=== PATIENT | male | born 1950 | race Caucasian/White ===

== ENCOUNTER 2017-04-30 11:35 | Outpatient (CLI) | payer MEDICARE ==
--- NOTE | 2017-04-30 19:54 | PET ---
PET CT 04/30/17 INDICATION: History of rectal cancer. RADIOPHARMACEUTICAL: 10.3 millicuries of F18 FDG IV. TECHNIQUE: PET CT images were obtained from the skull base through the mid thighs. CT images were obtained for attenuation correction purposes only. No comparisons are available. FINDINGS: The biodistribution for the examination appears acceptable. HEAD AND NECK: There is some mild hypermetabolic activity involving the right aspect of the thyroid gland with a pe ak SUV value of 4.85, mean value of 3.84. No definite discrete thyroid lesion is identified by CT. N o hypermetabolic lymphadenopathy is evident. there is an air fluid level within the right maxillary sinus which is suspicious for changes of underlying sinusitis. CHEST: There is a hypermetabolic spiculated nodule within the right middle lobe measuring 1.8 cm with a pe ak SUV value of 2.88 and a mean value of 2.14. No additional hypermetabolic pulmonary nodule or pleu ral effusion is evident. ABDOMEN AND PELVIS: There are numerous hypermetabolic lesions seen within the liver. One of the largest is seen within s egment VII of the right hepatic lobe measuring 2.4 cm with a peak SUV uptake of 14.57 and a mean jason ue of 11.8. There is a nonhypermetabolic cyst seen within segment V of the right hepatic lobe. There is a 4.5 cm cyst involving the inferior pole of the left kidney. The adrenal glands, pancreas, and spleen demonstrate no appreciable suspicious hypermetabolic uptake . No hypermetabolic lymphadenopathy or ascites is present. There is a large circumferential hypermetabolic mass involving the rectum originating approximately 7 cm from the level of the anus. The mass lesion extends 9 cm proximally into the rectosigmoid junct ion. The maximum SUV value is 8.31, mean value of 14.56. There are hypermetabolic lymph nodes seen within the presacral region. One of the most conspicuous p resacral hypermetabolic lymph nodes measures approximately 1 cm and has a maximum SUV value of 3.86, mean value of 2.47. There is a hypermetabolic lymph node seen adjacent to the left common iliac vas culature with the maximum SUV uptake being 7.02 and mean value of 4.72. There is hypermetabolic lymp h nodes seen within the sigmoid mesentery. No para-aortic hypermetabolic lymphadenopathy is evident. No inguinal hypermetabolic lymphadenopathy is evident. SKIN AND OSSEOUS STRUCTURES: No hypermetabolic skin or osseous lesion is identified. IMPRESSION: 1. Hypermetabolic rectal mass with hypermetabolic metastatic lesions within the liver. There is a spiculated nodule with associated mild hypermetabolic activity within the right middle lobe suspi cious for early metastatic disease to the lungs. 2. There is hypermetabolic presacral, left common iliac, and left sigmoid mesenteric lymph node s suspicious for malignant lymph node spread of disease. 3. Hypermetabolic activity involving the right aspect of the thyroid gland is nonspecific. Dedi cated thyroid ultrasound is recommended to evaluate for suspicious thyroid lesion. May reflect rocha es of a prominent thyroid nodule; however, thyroid malignancy cannot be entirely excluded. 4. No evidence of hypermetabolic skin or osseous metastatic disease. POS: [facility]
== END 2017-04-30 11:36 | disposition home or self-care (01) ==
LOC: PET 11:35
PROVIDERS: ATTEND Internal Medicine Hematology & Oncology
DX: C20 Malignant neoplasm of rectum (principal); K76.89 Other specified diseases of liver; R91.1 Solitary pulmonary nodule
CPT/HCPCS: 78815; 80048; 85025; A9552

== ENCOUNTER 2017-04-30 14:39 | Outpatient (CLI) | payer MEDICARE ==
[2017-04-30 15:41] LABS: #Basophils 0.1 thou/uL (0.0-0.2); #Eosinphils 0.2 thou/uL (0.0-0.7); #Lymphocytes 2.1 thou/uL (1.20-3.40); #Monocytes 0.6 thou/uL (0.11-0.59); #Neutrophils 6.8 thou/uL (1.40-6.50); %Basophils 0.7 % (0.0-1.0); %Eosinophils 2.3 % (0.0-10.0); %Lymphocytes 21.2 % (21.0-51.0); %Monocytes 5.8 % (0.0-10.0); Hematocrit 30.8 % (42.0-52.0); Mean Platelet Volume 7.2 fL (7.4-10.4); Red Blood Cell (RBC) Count 3.87 mill/uL (4.70-6.10); White Blood Cell (WBC) Count 9.8 thou/uL (4.8-10.8)
[2017-04-30 16:03] LABS: Anion Gap 11 mmol/L (10-20); BUN (Urea Nitrogen) 13 mg/dL (8.4-25.7); Calc. Creatinine Clearance 0 mL/min (70-130); Calcium 10.6 mg/dL (7.8-10.44); Carbon Dioxide 23 mmol/L (23-31); Chloride 108 mmol/L (98-107); Estimated GFR-MDRD Greater than 90
== END 2017-04-30 14:40 | disposition home or self-care (01) ==
LOC: LABBT 14:39
PROVIDERS: ATTEND Surgery
DX: Z01.812 Encounter for preprocedural laboratory examination (principal); C20 Malignant neoplasm of rectum
CPT/HCPCS: 80048; 85025

== ENCOUNTER 2017-05-03 05:34 | Day surgery (SDC) | payer MEDICARE ==
[2017-04-30 15:10] VITALS: BMI 23.9
[2017-05-03] MEDS ORDERED: Lidocaine 2% w/Epinephrine 1:200K 20 ML VIAL ONE (06:45)
[2017-05-03] MEDS ORDERED: Bupivacaine 0.25% HCL 30 ML VIAL ONE (06:46)
[2017-05-03] MEDS ORDERED: Sodium Chloride 0.9% 20 ML ONE (06:46)
[2017-05-03] MEDS ORDERED: Propofol 500 MG/50 ML VIAL ONE (07:14)
[2017-05-03] MEDS ORDERED: Fentanyl 100 MCG/2 ML VIAL ONE (07:14)
[2017-05-03] MEDS ORDERED: Midazolam HCl 2 mg/2 ml Vial ONE (07:16)
--- NOTE | 2017-05-03 10:19 | RAD ---
CHEST 1 VIEW: HISTORY: MediPort placement. FINDINGS: Cardiac silhouette and pulmonary vasculature are unremarkable. Lungs are hyperinflated. Ill-define d parenchymal density projecting over the right mid chest correlates with the nodularity and mass on recent PET scan. The tip of a left subclavian MediPort projects over the superior vena cava. There is no evidence of pneumothorax. IMPRESSION: Left subclavian MediPort is in good radiographic position. POS: [facility]
--- NOTE | 2017-05-03 17:43 | PDOC.OP ---
Operative Note - Operative Note Operative Note: PROCEDURE: Left subclavian MediPort placement with fluoroscopic guidance SURGEON: Reyna Brunson M.D. DATE OF PROCEDURE: 05/03/2017 PREOPERATIVE DIAGNOSIS: Metastatic rectal cancer POSTOPERATIVE DIAGNOSIS: Metastatic rectal cancer HISTORY: Patient is diagnosed with rectal cancer with multiple liver metastases and a mass in the pancreatic head. Chemotherapy has been recommended and the oncologist has requested MediPort placement for this. OPERATIVE PROCEDURE IN DETAIL: After informed consent was obtained and appropriate preoperative antibiotics were administered, the patient was taken to the operating room and placed in supine position and monitored anesthesia care was administered. The patient was then placed in Trendelenburg position and the subclavian vein accessed easily on the first attempt with excellent flow of dark venous non-pulsatile blood. A wire threaded easily and was confirmed to be in the superior vena cava by fluoroscopy. Additional local anesthesia was infused to the skin and subcutaneous tissues lateral and inferior to the access site. The skin incision was extended from the wire laterally and a subcutaneous pocket developed inferiorly. A Mediport was obtained and confirmed to fit in the subcutaneous pocket. This was secured inferiorly to the pectoralis fascia with a Prolene suture, which was clamped, but not tied. The dilator and sheath were then placed over the wire and the dilator and wire removed leaving the sheath in place. The clamped MediPort tubing was tunneled through the sheath, which was then split and removed leaving the MediPort tubing in place. The tubing was adjusted until the tip was confirmed by fluoroscopy to be in the superior vena cava just above the atrium. The tubing was clamped at the skin level and cut and the tubing secured to the port, which was then placed in the subcutaneous pocket. The previously placed suture was secured and two additional sutures were placed to fix the port in place within the pocket. The port was aspirated with the Lopez needle and had excellent flow of dark venous non-pulsatile blood and easily flushed without resistance. The subcutaneous tissues were closed with a running Monocryl suture, following which the skin was closed with a running subcuticular Monocryl suture. Dermabond dressings were placed and the hub was again accessed through the skin and confirmed to easily aspirate and easily flush. The course of the catheter was confirmed by fluoroscopy to be smooth with the tip appropriately located in the superior vena cava. The patient was taken her back to the day stay unit in good condition. Estimated blood loss was minimal. There were no complications. There were no specimens.
== END 2017-05-03 09:25 ==
LOC: SDC 05:34
PROVIDERS: ATTEND Surgery
PROC: 05H633Z Insertion of Infusion Device into Left Subclavian Vein, Percutaneous Approach (ICD-10-PCS; principal; 2017-05-03)
DX: C20 Malignant neoplasm of rectum (principal); Z98.890 Other specified postprocedural states; Z79.899 Other long term (current) drug therapy
CPT/HCPCS: 71010; A4216; C1788; J1642; J2250; J2704; J3010; S0020

== ENCOUNTER 2017-05-28 12:14 | Inpatient (IN) | payer MEDICARE ==
[2017-05-28] MEDS: D5 1/2 NS w/20 mEq KCL 1,000 ML IV SCH ×2 (13:20→21:47)
[2017-05-28] MEDS ORDERED: Fentanyl 100 MCG/2 ML VIAL SLOW IVP PRN (13:27)
[2017-05-28] MEDS ORDERED: Sodium Chloride 0.9% 500 ML IVPB SCH (13:30)
[2017-05-28] MEDS ORDERED: Acetaminophen 325 MG TAB PO PRN (13:33)
[2017-05-28] MEDS ORDERED: Ondansetron HCl/PF 4 MG/2 ML Vial IVP PRN ×3 (13:33→20:13)
[2017-05-28] MEDS ORDERED: Milk Of Magnesia 30 ML UDCUP PO PRN (13:33)
[2017-05-28] MEDS ORDERED: Sodium Chloride 0.9% 1,000 ML IV SCH (14:00)
--- NOTE | 2017-05-28 14:21 | HP ---
ADMITTING PHYSICIAN: Dr. Luis Daniel Ramirez. PRIMARY CARE PHYSICIAN: Dr. Marcos Molina. CHIEF COMPLAINT: Abdominal pain. HISTORY OF PRESENT ILLNESS: The patient is a 67-year-old gentleman with history of rectal carcinoma with metastatic disease to the liver and head of the pancreas. Patient was seen today in Oncology clinic with complaint of abdominal pain. The patient reports that the pain started yesterday around noon. He was doing fine prior to the pain. Nothing made it worse, nothing made it better. He carrizales s report having 2 small bowel movements since the pain started. He was in Oncology clinic and noted to be tachycardic and was sent for a direct admission by Dr. Molina. There is some imaging that w as performed on the patient, which may be consistent with bowel obstruction. The patient during my interview denies chest pain, shortness of breath or any other review of systems. REVIEW OF SYSTEMS: The following complete review of systems was negative, unless otherwise mentione d in the HPI or below: Constitutional: Weight loss or gain, sense of well-being, ability to conduct usual activities, exer cise tolerance. Skin/Breast: Rash, itching, changes in hair growth or loss, nail changes, breast lumps, tenderness, swelling, nipple discharge. Eyes: Vision, double vision, tearing, blind spots, pain. ENT/Mouth: Headaches (location, time of onset, duration, precipitating factors), vertigo, lighthead edness, injury. Vision, double vision, tearing, blind spots, pain, nose bleeding, colds, obstruction , discharge, dental difficulties, gingival bleeding, dentures, neck stiffness, pain, tenderness, mas ses in thyroid or other areas. Cardiovascular: Precordial pain, substernal distress, palpitations, syncope, dyspnea on exertion, o rthopnea, nocturnal paroxysmal dyspnea, edema, cyanosis, hypertension, heart murmurs, varicosities, phlebitis, claudication. Respiratory: Pain, shortness of breath, wheezing, stridor, cough, hemoptysis, fever or night sweats . Gastrointestinal: Poor appetite, dysphagia, indigestion, abdominal pain, heartburn, eructation, [place], vomiting, hematemesis, jaundice, constipation, or diarrhea, abnormal stools (maria teresa-colored, rob y, bloody, greasy, foul smelling), flatulence, hemorrhoids, recent changes in bowel habits. Genitourinary: Urgency, frequency, dysuria, nocturia, hematuria, polyuria, oliguria, unusual (or ch colby in) color of urine, stones, hesitancy, change in size of stream, dribbling, acute retention or incontinence, libido, potency. Musculoskeletal: Pain, swelling, redness or heat of muscles or joints, limitation, of motion, muscu lar weakness, atrophy, cramps. Neurologic/Psychiatric: Convulsions, paralyses, tremor, incoordination, paresthesias, difficulties with memory of speech, sensory or motor disturbances, or muscular coordination (ataxia, tremor), emo tional problems, anxiety, depression, previous psychiatric care, unusual perceptions, hallucinations . Allergy/Immunologic: Skin rash, anemia, bleeding tendency, polydipsia, polyuria, intolerance to hea t or cold. PAST MEDICAL HISTORY: Significant for; 1. Melanoma of the right postauricular area. 2. Rectal CA with metastatic disease. 3. Abdominal pain. PAST SURGICAL HISTORY: Partial excision of postauricular melanoma as well as left leg fracture. FAMILY HISTORY: Father had a history of colon cancer before age 60 and the patient's brother had or al cancer. SOCIAL HISTORY: Patient is with 2 children, lives with his spouse. Never smoker. Drinks r antonia. No illicit drug abuse. ALLERGIES: No known drug allergies. HOME MEDICATION: Include a daily multivitamin. PHYSICAL EXAMINATION: VITAL SIGNS: Vital statistics, a temperature of 99.4, pulse 116, systolic 92 and diastolic blood pr essure of 52, satting 96% on room air. GENERAL: He is well-developed, well-nourished in no acute distress and cooperative. HEENT: Extraocular muscles intact. PERRL. NECK: Supple, without mass or thyromegaly. LUNGS: Clear to auscultation. CARDIAC: Sinus tachycardia. No murmurs, rubs or gallops. ABDOMEN: No masses palpated. There is tenderness in the suprapubic area. EXTREMITIES: No clubbing, cyanosis or edema. NEUROLOGIC: Full range of motion of all extremities. Cranial nerves II-XII are grossly intact. LABS AND IMAGES: CBC shows a white count of 2.4, hemoglobin 11.7, hematocrit 35.0 and platelets 517 with an absolute neutrophil count of 1900. ASSESSMENT: 1. Rectal cancer with metastatic disease. 2. Abdominal pain. PLAN: The patient will be admitted and seen and assessed by the Surgical Service. We will also obt ain abdominal imaging to rule out a bowel obstruction. We will treat the patient's pain accordingly with IV opiates. We will provide the patient with other supportive measures as needed.
--- NOTE | 2017-05-28 15:59 | CON ---
DATE OF CONSULTATION: 05/28/2017 CHIEF COMPLAINT: Abdominal pain. HISTORY OF PRESENT ILLNESS: Mr. Driver is a 67-year-old man with a near-obstructing metastatic rec ignacio cancer, who has begun chemotherapy. He has not had any previous signs or symptoms of obstructio n, but he presented to his oncologist today with abdominal pain since yesterday around noon. He sta tanisha that the abdominal pain came on relatively quickly and has not abated since. He states it is ab out the same as it was yesterday, but has moved more from the right side to the left side. He denie s any nausea or vomiting. He has had low-grade fevers up to about 101. He is currently on chemothe rapy, but his absolute neutrophil count is greater than 1000. He passed gas yesterday; does not rec all passing any today. He had a small bowel movement this morning, which did not change his pain. PAST MEDICAL HISTORY: History of melanoma and recently diagnosed rectal cancer. PAST SURGICAL HISTORY: ORIF and later removal of hardware of the left ankle and melanoma of the rig ht neck in 2013. MediPort placement for chemotherapy. FAMILY HISTORY: He has a family history of cancer. SOCIAL HISTORY: He does not smoke, drink, or use illicit drugs. ALLERGIES: He has no known drug allergies. OUTPATIENT MEDICATIONS: Multivitamin. He is currently receiving chemotherapy. ONCOLOGIST: Dr. Molina. PHYSICAL EXAMINATION: VITAL SIGNS: Still pending, but he is tachycardic on bedside exam. He does not feel warm to the to uch. Respiratory rate is normal. HEENT: Unremarkable. NECK: Supple, without lymphadenopathy or thyroid nodules. HEART: Tachycardic, but regular. No murmurs, rubs, or gallops. LUNGS: Clear to auscultation bilaterally. He does not exhibit any pain with deep inspiration. ABDOMEN: Firm and distended and diffusely tender to palpation, but more in the lower abdomen than t he upper abdomen. He has some voluntary guarding, but does not exhibit rebound. No palpable masses or hernias. EXTREMITIES: Warm and well perfused without edema. NEUROLOGIC: No focal deficits. PSYCHIATRIC: Alert, oriented, and appropriate. LABORATORY DATA: Labs from Dr. Molina' clinic reveal a white blood cell count of [address] Molina' report with a neutrophil count of about 1.2. I cannot find the actual lab report itself. Chemistr y shows a BUN and creatinine of 27 and 1.99, which is twice his baseline. His calcium has gone from 10 to 12 and his bilirubin has gone from 0.3 to 1.4. ASSESSMENT: Patient with large rectal cancer, which was felt to be near-obstructing at the time of diagnosis. It appears likely that he has proceeded to at least high-grade partial colonic obstructi on. I am concerned that he could have damage to his proximal colon due to distention, especially si nce his pain started on the right. He has an acute abdominal series ordered and the research technologist is here to take him for that now. If he has free air, he will need to go to the operating room jose gently. Otherwise, I will follow this up with a noncontrast CT to make sure he does not have pneuma tosis or other more subtle findings. Currently, he is on a schedule tomorrow morning for diverting loop colostomy for palliation, but the timing and type of surgery may need to be adjusted based on muna ortiz.
[2017-05-28] MEDS ORDERED: Lidocaine 2% w/Epinephrine 1:200K 20 ML VIAL ONE (16:01)
[2017-05-28] MEDS ORDERED: Bupivacaine 0.25% HCL 30 ML VIAL ONE (16:01)
[2017-05-28] MEDS ORDERED: [UNRECOGNIZED DRUG - OTHER] IVPB SCH ×2 (16:15)
[2017-05-28] MEDS ORDERED: ADMIXTURE FEE IVPB SCH ×2 (16:15)
[2017-05-28] MEDS ORDERED: MEROPENEM IVPB SCH ×2 (16:15)
--- NOTE | 2017-05-28 16:16 | RAD ---
ABDOMEN TWO VIEWS CHEST ONE VIEW: History: 67-year-old male with abdominal pain and history of large rectal cancer. Comparison: Chest one view, 05-03-17. FINDINGS: There is a left subclavian catheter and injection port again noted in place. There is some minimal l inear parenchymal opacities in the right lung base with some blunting of the right costophrenic angl e, probably small pleural effusion. No evidence of large or small bowel obstruction. There is modera te fecal material in the colon. No free intraperitoneal air or overt calculus. IMPRESSION: Gas and fecal material in the colon without evidence of large or small bowel obstruction. No free in traperitoneal air or overt calculus. Minimal linear and parenchymal changes in the right lung base a nd slight blunting of the right costophrenic angle, new from the prior 05-03-17 study. POS: [facility]
[2017-05-28] MEDS ORDERED: Fentanyl 250 MCG/5 ML VIAL ONE (16:51)
[2017-05-28] MEDS ORDERED: Midazolam HCl 2 mg/2 ml Vial ONE (16:51)
[2017-05-28 17:00] LABS: Hematocrit 34.8 % (42.0-52.0); Mean Platelet Volume 7.3 fL (7.4-10.4); Red Blood Cell (RBC) Count 4.35 mill/uL (4.70-6.10); White Blood Cell (WBC) Count 4.2 thou/uL (4.8-10.8)
[2017-05-28] MEDS ORDERED: Succinylcholine Chloride 20 MG/ML 10 ml SYRINGE FS ONE (17:03)
[2017-05-28] MEDS ORDERED: Propofol 200 MG/20 ML VIAL ONE ×2 (17:03)
[2017-05-28] MEDS ORDERED: Lidocaine 1% PF 5 ML VIAL ONE (17:03)
[2017-05-28] MEDS ORDERED: Glycopyrrolate 0.2 MG/ML 5 ML SYRINGE ONE (17:03)
[2017-05-28] MEDS ORDERED: Dexamethasone 20 MG/5 ML VIAL ONE (17:03)
[2017-05-28] MEDS ORDERED: Labetalol HCl 100 MG/20 ML SYR ONE (17:03)
[2017-05-28] MEDS ORDERED: Ondansetron HCl/PF 4 MG/2 ML Vial ONE (17:03)
[2017-05-28] MEDS ORDERED: PHENYLEPHRINE-NS 100 MCG/ML 10 ML SYRINGE ONE (17:03)
[2017-05-28 17:21] LABS: Acanthocytes SLIGHT = 1-5 cells (100X) (None Seen); Anisocytosis SLIGHT = 6-15 cells (100X) (0-5/hpf); Band 13 % (5-11); Metamyelocyte 5 % (0-0); Myelocyte 2 % (0-0); Neutrophil 28 % (42-75); Ovalocytes SLIGHT = 2-5 cells (100X) (0-1/hpf); Reactive Lymphocytes 1 % (0-10)
[2017-05-28] MEDS ORDERED: Rocuronium Bromide 50 MG/5 ML VIAL ONE (18:35)
--- NOTE | 2017-05-28 19:11 | CT ---
CT ABDOMEN AND PELVIS 05/28/17 COMPARISON: None available. HISTORY: Severe abdominal pain, rectal cancer, chemotherapy. TECHNIQUE: Serial axial CT imaging at 5 mm intervals from lung bases through pubic symphysis without contrast. Coronal reformatted imaging obtained. FINDINGS: The lack of intravenous and oral contrast limits assessment of the imaged viscera, bowel, vascular s tructures, and for lymphadenopathy. There are increased linear densities noted within the right middle lobe inferiorly in the inferior a spect of the both lower lobes, right greater than left. There is a lesion within the right lobe of the liver on image 28 measuring 2.7 cm, when compared to a prior PET CT performed 04/30/17, stable, concerning for a hepatic metastatic lesion. The spleen, ga llbladder, pancreas and adrenal glands appear grossly unremarkable. There is a punctate stone in the upper pole of the left kidney. There is a cyst in the lower pole of the left kidney measuring up to 4.6 cm. There is rectal wall thickening, consistent with the provided history of rectal cancer. The rectal w all thickening is improved when compared to the prior examination. However, there is a new stool con taining collection posterior to the urinary bladder and seminal vesicles, measuring 5.2 x 2.7 cm, be st seen on axial image 88. This is most consistent with a perforated rectal tumor with an associated ventral leak. There is diffuse wall thickening of the colon from the level of the junction of the d escending colon and sigmoid colon to the level of the rectum, slightly less conspicuous than on prio r examination. There are numerous new foci of free intraperitoneal gas scattered throughout the abdomen/pelvis. Thi s includes small foci of free intraperitoneal gas in the left hemipelvis as well as centrally within the mesentery as well as anteriorly within the upper left abdomen and mid left abdomen, also consis tent with bowel perforation. There is associated free fluid in bilateral paracolic gutters and withi n the pelvis. There is extensive mesenteric edematous change as well. There is no evidence for bowel obstruction. Along the ventral aspect of the peritoneal cavity in the left upper quadrant there is fluid density as well as fluid density scattered throughout leaves of the mesentery. There is atherosclerotic calcification of the infrarenal abdominal aorta. No pelvic or retroperitone al adenopathy is evident. Review of osseous structures demonstrates no worrisome lytic or blastic keli ne lesion. There are a few subcentimeter nodes in the mesentery adjacent to the distal sigmoid colon and in the presacral space right of midline suspicious for metastatic disease within regional lymph nodes. IMPRESSION: 1. There is diffuse wall thickening of the colon from the level of the sigmoid colon to the lev el of the rectum. The patient has a known malignancy in this region and the wall thickening may be a ssociated with residual tumor, inflammatory change, or combination of the two. Since the prior exami nation, there has been development of a stool filled collection ventral to the distal colon, evidenc e of a colonic perforation(likely at a level of transmural tumor). Associated free intraperitoneal g as is seen throughout the abdomen/pelvis and there is associated edematous change within the mesente ry with scattered areas of free fluid as detailed above. 2. No evidence for bowel obstruction. 3. Low density lesion in the right lobe of the liver, most consistent with hepatic metastatic d isease. 4. Dr. Brunson made aware at 3:25 p.m., 05/28/17. Code CR POS: [facility]
[2017-05-28] MEDS ORDERED: Zolpidem Tartrate 5 MG TAB PO PRN (20:10)
[2017-05-28] MEDS ORDERED: Fentanyl 5000 MCG/250 ML CADD IVPB PRN (20:10)
[2017-05-28] MEDS ORDERED: diphenhydrAMINE 25 MG CAP PO PRN (20:10)
[2017-05-28] MEDS ORDERED: Naloxone HCl 0.4 mg/ml Vial IV PRN (20:10)
[2017-05-28] MEDS ORDERED: Promethazine HCl 25 MG/ML VIAL IM PRN ×3 (20:10→20:55)
[2017-05-28] MEDS ORDERED: diphenhydrAMINE 50 MG/ML VIAL IM PRN (20:10)
[2017-05-28] MEDS ORDERED: diphenhydrAMINE 50 MG/ML VIAL IVP PRN (20:10)
[2017-05-28] MEDS ORDERED: Promethazine HCl 25 MG/ML VIAL SLOW IVP PRN (20:13)
[2017-05-28] MEDS ORDERED: Meperidine HCl/PF 25 MG/ML VIAL SLOW IVP PRN (20:13)
[2017-05-28] MEDS ORDERED: Communication Order-Pharmacy FS SCH (20:15)
[2017-05-28] MEDS ORDERED: Fentanyl 20 MCG/ML 250 ML ONE (20:19)
[2017-05-28] MEDS ORDERED: hydrALAZINE 20 MG/ML VIAL SLOW IVP PRN (20:55)
[2017-05-28] MEDS: Famotidine/PF 20 mg/2ml Vial SLOW IVP SCH (21:47)
[2017-05-28] MEDS: Famotidine 20 MG TAB PO SCH (21:48)
[2017-05-28] MEDS ORDERED: Meropenem 1 GM in Sodium Chloride 0.9% 100 ML IVPB SCH (22:00)
[2017-05-29] MEDS: Acetaminophen 1,000 MG in Premix Bag 1 BAG IVPB SCH ×4 (00:39→18:05)
[2017-05-29] MEDS: Meropenem 1 GM, Admixture Fee 1 EACH in Sterile Water 20 ML SLOW IVP SCH ×4 (00:40→23:54)
[2017-05-29] MEDS: D5 1/2 NS w/20 mEq KCL 1,000 ML IV SCH ×2 (05:29→14:11)
[2017-05-29 06:07] LABS: Anion Gap 9 mmol/L (10-20); BUN (Urea Nitrogen) 30 mg/dL (8.4-25.7); Calc. Creatinine Clearance 58 mL/min (70-130); Calcium 10.3 mg/dL (7.8-10.44); Carbon Dioxide 22 mmol/L (23-31); Chloride 107 mmol/L (98-107); Estimated GFR-MDRD 57
[2017-05-29 06:08] LABS: Band 66 % (5-11); Hematocrit 30.6 % (42.0-52.0); Mean Platelet Volume 7.6 fL (7.4-10.4); Metamyelocyte 5 % (0-0); Myelocyte 1 % (0-0); Neutrophil 17 % (42-75); Red Blood Cell (RBC) Count 3.76 mill/uL (4.70-6.10); White Blood Cell (WBC) Count 7.3 thou/uL (4.8-10.8)
[2017-05-29] MEDS: Famotidine/PF 20 mg/2ml Vial SLOW IVP SCH ×2 (08:54→21:17)
--- NOTE | 2017-05-29 08:59 | PDOC.OP ---
Operative Note - Operative Note Operative Note: PROCEDURE: Laparoscopic hand-assisted colostomy with abdominal washout and repair of colonic perforation. Incidental resection of colonic polyp. DATE OF PROCEDURE: 05/28/2017 SURGEON: Reyna Brunson M.D. PREOPERATIVE DIAGNOSES: Obstructing rectal cancer with rectosigmoid perforation POSTOPERATIVE DIAGNOSIS: Obstructing rectal cancer with rectosigmoid perforation HISTORY: Patient is a 67-year-old man with recently diagnosed metastatic rectal cancer. This was quite bulky but he did not have any obstructing symptoms so the decision was made to treat him with palliative chemoradiation. He had began his chemotherapy, but presented to his oncologist with acute onset of abdominal pain. Acute abdominal series was negative for free air but CT scan showed foci of free air and extraluminal stool in the pelvis suggestive of a perforation at the rectosigmoid junction. The patient was posted emergently for the operating room for repair and diversion. PROCEDURE IN DETAIL: After informed consent was obtained and appropriate preoperative antibiotics were administered, the patient was taken to the operating room where he was placed in the supine position and general tracheal anesthesia was administered. An OG tube was placed to decompress the stomach and a Pacheco catheter placed to decompress the bladder. He was prepped and draped in standard sterile fashion and local anesthesia infused the skin and subcutaneous tissues in the periumbilical region. A 6 cm incision was made and dissection carried down to the fascia which was incised in midline. The peritoneal cavity was opened under direct vision and fecal staining of the underlying bowel was immediately evident. Acute adhesions between the bowel and the anterior abdominal wall were taken down bluntly and the wound protector and GelPort placed. Carbon dioxide gas was insufflated to an intra-abdominal pressure of 15 which the patient tolerated well and dissecting trochars placed under direct vision in the upper midline, lower midline, right lower quadrant, and the anticipated site of his colostomy in the left lower quadrant. A large amount of fecal fluid was suctioned out of the abdominal cavity including a large amount of soft formed stool in the pelvis. The perforation was identified and was about a centimeter in size at the rectosigmoid junction just above the hard tumor mass. The tissue distal to the perforation was hard and was felt unlikely to hold sutures well, but the tissue lateral and proximal to the perforation was relatively soft although indurated, so the decision was made to close this longitudinally. 3-0 Vicryl sutures were used to close the perforation with good effect. The abdominal cavity was then copiously irrigated to clear breaking up all the interloop adhesions which appeared acute and running the small intestine from the ligament of Treitz to the ileocecal valve to ensure that no interloop abscesses were left undrained. The sigmoid colon was then mobilized off of the lateral abdominal wall and was easily redundant enough to reach up to the planned colostomy site, although the colon was distended with hard stool. The skin incision was made at the colostomy site and dissection carried down along the trocar to the anterior rectus sheath which was incised in a cruciate manner and the rectus muscles were split and the posterior sheath likewise incised in a cruciate manner. The tract was dilated to 4 fingers size. The hard stool was pushed proximally to allow the colon to be drawn out through the colostomy site. A mesenteric window was created and a red rubber catheter placed through this and secured to the skin to hold the colostomy in place. The abdominal cavity was then again copiously irrigated through the wound protector and all return was clear. The GelPort was replaced and The gas reinsufflated. The abdominal cavity was carefully examined. The repair site at the rectosigmoid junction appeared intact without any further leakage of stool. The abdominal cavity was again irrigated and all return was clear. In total over 10 L of irrigation fluid was used. The small intestine was again run from the ligament of Treitz to the ileocecal valve, and the colon examined from the cecum to the rectosigmoid junction and no other abnormalities found although there was extensive fecal staining of the bowel surface. The patient's known hepatic metastases were incidentally noted. A BLANCA drain was placed into the abdominal cavity and drawn out through the right lower quadrant incision and secured to the skin. This was placed down into the pelvis adjacent to the repair. The upper and lower midline trochars were removed and hemostasis verified. The omentum was drawn down over the small intestine and Seprafilm placed between this and the anterior abdominal wall. The midline fascia was closed under direct vision with a running PDS suture with excellent technical result. The skin incisions were copiously irrigated. Due to the contaminated nature of the case the periumbilical incision was partially closed with darren and packed with iodoform gauze between the darren. The dissecting ports were closed with darren and the incisions were dressed with gauze and Tegaderm. Attention was then turned to maturation of the colostomy. The colon was secured to the anterior rectus sheath with Lembert sutures circumferentially to both limbs of the loop colostomy. The colon was then opened transversely with a 70/ 30 proximal/distal incision and an everted timbi-[place] sh[place] type colostomy created. The patient was noted to have a long polyp in the distal loop which was hanging out through the colostomy so this was divided at its base with electrocautery and passed from the field. The loops were examined digitally and were widely patent through the level of the fascia. Some hard stool was removed from the proximal bowel and a colostomy appliance was placed. The patient was extubated and taken to the recovery room in good condition. Estimated blood loss was 100 mL's. There were no complications. Specimen is colon polyp.
[2017-05-29] MEDS: Famotidine 20 MG TAB PO SCH ×2 (09:06→22:09)
[2017-05-29] MEDS: Enoxaparin Sodium 40 MG/0.4 ML SYRINGE SC SCH (10:08)
[2017-05-29] MEDS: D10W AA 8.5% With Lytes 1000 ML BAG IV SCH (18:03)
[2017-05-30] MEDS: D5 1/2 NS w/20 mEq KCL 1,000 ML IV SCH ×2 (02:45→23:45)
[2017-05-30] MEDS: D10W AA 8.5% With Lytes 1000 ML BAG IV SCH ×2 (03:52→14:52)
[2017-05-30] MEDS: Meropenem 1 GM, Admixture Fee 1 EACH in Sterile Water 20 ML SLOW IVP SCH ×2 (09:02→15:57)
[2017-05-30] MEDS: Famotidine/PF 20 mg/2ml Vial SLOW IVP SCH ×2 (09:02→20:28)
[2017-05-30] MEDS: Famotidine 20 MG TAB PO SCH ×2 (09:02→20:29)
[2017-05-30] MEDS: Enoxaparin Sodium 40 MG/0.4 ML SYRINGE SC SCH (10:38)
[2017-05-30] MEDS: HYDROmorphone HCl/PF 0.1 MG/ML 100 ML IVPB SCH (12:34)
[2017-05-30] MEDS ORDERED: Acetaminophen 325 MG TAB PO PRN (19:38)
[2017-05-30] MEDS ORDERED: Acetaminophen 650 MG/20.3 ML UDCUP PO PRN (20:06)
[2017-05-31] MEDS: Meropenem 1 GM, Admixture Fee 1 EACH in Sterile Water 20 ML SLOW IVP SCH ×3 (01:10→16:34)
[2017-05-31] MEDS: D10W AA 8.5% With Lytes 1000 ML BAG IV SCH (01:11)
[2017-05-31 06:02] LABS: Band 6 % (5-11); Hematocrit 27.6 % (42.0-52.0); Mean Platelet Volume 7.6 fL (7.4-10.4); Neutrophil 78 % (42-75); Red Blood Cell (RBC) Count 3.37 mill/uL (4.70-6.10); White Blood Cell (WBC) Count 8.1 thou/uL (4.8-10.8)
[2017-05-31 06:06] LABS: ALT (SGPT) 18 U/L (8-55); AST (SGOT) 21 U/L (5-34); Alkaline Phosphatase 54 U/L (40-150); Anion Gap 11 mmol/L (10-20); BUN (Urea Nitrogen) 20 mg/dL (8.4-25.7); Bilirubin, Total 0.7 mg/dL (0.2-1.2); Calc. Creatinine Clearance 106 mL/min (70-130); Calcium 10.7 mg/dL (7.8-10.44); Carbon Dioxide 21 mmol/L (23-31); Chloride 104 mmol/L (98-107); Estimated GFR-MDRD Greater than 90; Globulin 3.2 g/dL (2.4-3.5); Protein, Total 5.6 g/dL (5.8-8.1)
[2017-05-31] MEDS: Famotidine 20 MG TAB PO SCH ×2 (08:15→19:35)
[2017-05-31] MEDS: Famotidine/PF 20 mg/2ml Vial SLOW IVP SCH ×2 (08:22→20:12)
--- NOTE | 2017-05-31 11:40 | CT ---
CT ABDOMEN AND PELVIS NONCONTRAST: History: Left flank pain. Recent surgery for colon perforation. Comparison: 05-28-17 FINDINGS: Each renal collecting system, ureter and urinary bladder are incompletely distended. Hyperdense mate rial within the dependent portion of the bladder may represent clotted blood. Pacheco catheter is in p lace. A 0.4 cm calculus is present within a nondilated john of the superior pole of the left kidney . Lack of contrast limits evaluation for other abnormalities. Small amount of bilateral pleural fluid and bibasilar atelectasis are present. Cyst is again noted within the medial segment left liver lob e. There is calcification in the arterial structures. Post-operative changes of the abdomen include left lower quadrant diverting ostomy and radiopaque drain within the dependent portion of the pelvis . Hyperdense material within the dependent portion of the gallbladder lumen likely represent excreti on of contrast. Small pockets of gas and free air throughout the abdomen are consistent with recent surgery. Inflammation of the sigmoid colon is similar in appearance to the prior study. Diverticula arise from the colon. IMPRESSION: 1. Small nonobstructing left renal calculus. 2. Interval post-operative changes of the abdomen and pelvis, as detailed above. 3. Chronic type findings are otherwise stable. POS: [facility]
[2017-05-31] MEDS ORDERED: D10W AA 8.5% With Lytes 1000 ML BAG IV SCH (12:00)
[2017-05-31] MEDS ORDERED: Enoxaparin Sodium 40 MG/0.4 ML SYRINGE SC SCH (12:45)
[2017-05-31] MEDS: Enoxaparin Sodium 40 MG/0.4 ML SYRINGE SC SCH (16:33)
[2017-05-31] MEDS: D5 1/2 NS w/20 mEq KCL 1,000 ML IV SCH (16:33)
[2017-05-31] MEDS: HYDROmorphone HCl/PF 0.1 MG/ML 100 ML IVPB SCH (17:21)
[2017-05-31] MEDS ORDERED: Multivitamins, Adult 10 ML, Multitrace-5 5 ML in D30W-AA 10% with Lytes 2,000 ML, Fat E... IV SCH (22:00)
[2017-06-01] MEDS: MEROPENEM 1 GM/50 ML 1 GM in Premix Bag 1 BAG IVPB SCH ×3 (00:05→16:28)
[2017-06-01 05:41] LABS: Prothrombin Time 14.3 SEC (12.0-14.7)
[2017-06-01 05:51] LABS: ALT (SGPT) 25 U/L (8-55); AST (SGOT) 29 U/L (5-34); Alkaline Phosphatase 58 U/L (40-150); Anion Gap 6 mmol/L (10-20); BUN (Urea Nitrogen) 19 mg/dL (8.4-25.7); Bilirubin, Total 0.5 mg/dL (0.2-1.2); Calc. Creatinine Clearance 105 mL/min (70-130); Calcium 10.8 mg/dL (7.8-10.44); Carbon Dioxide 25 mmol/L (23-31); Chloride 103 mmol/L (98-107); Estimated GFR-MDRD Greater than 90; Globulin 3.4 g/dL (2.4-3.5); Magnesium 2.1 mg/dL (1.6-2.6); Phosphorus 2.2 mg/dL (2.3-4.7); Protein, Total 5.8 g/dL (5.8-8.1)
[2017-06-01] MEDS: Famotidine 20 MG TAB PO SCH ×2 (09:11→19:28)
[2017-06-01] MEDS: Famotidine/PF 20 mg/2ml Vial SLOW IVP SCH ×2 (09:11→20:00)
[2017-06-01] MEDS ORDERED: Enoxaparin Sodium 40 MG/0.4 ML SYRINGE SC SCH (09:30)
[2017-06-01] MEDS: Enoxaparin Sodium 40 MG/0.4 ML SYRINGE SC SCH (11:00)
[2017-06-01] MEDS: D5 1/2 NS w/20 mEq KCL 1,000 ML IV SCH (20:13)
[2017-06-01] MEDS: SODIUM ACETATE IV SCH ×7 (22:00)
[2017-06-01] MEDS: SODIUM CHLORIDE IV SCH ×7 (22:00)
[2017-06-01] MEDS: SODIUM PHOSPHATE IV SCH ×7 (22:00)
[2017-06-01] MEDS: [UNRECOGNIZED DRUG - OTHER] IV SCH ×7 (22:00)
[2017-06-01] MEDS: HYDROmorphone HCl/PF 0.1 MG/ML 100 ML IVPB SCH (22:16)
[2017-06-02] MEDS: MEROPENEM 1 GM/50 ML 1 GM in Premix Bag 1 BAG IVPB SCH ×4 (00:02→23:27)
--- NOTE | 2017-06-02 01:02 | PRG ---
DATE OF SERVICE: 06/01/2017 SUBJECTIVE: I am seeing Mr. Driver on behalf of Dr. Brunson. The patient is postoperative day #4 status post laparoscopic hand-assisted colostomy with abdominal washout and repair of colonic perfor ation. He reports adequate pain control. The patient denies any fevers or chills. OBJECTIVE: VITAL SIGNS: Include blood pressure 140/82, pulse 98, respirations 18, temperature 98.8 degrees Fah renheit, oxygen saturation 95% on room air. HEENT: Reveals normocephalic and atraumatic. HEART: Reveals regular rate and rhythm. No murmurs or gallops auscultated. CHEST: Lungs clear to auscultation bilaterally. Breathing regular and unlabored. ABDOMEN: Soft with left lower quadrant tenderness to palpation. No gross rebound tenderness presen t. Irving-Wong drain is in place, returns scant amount of seropurulent fluid. Colostomy is viabl e with no stool or gas. NEUROLOGIC: Reveals no focal deficits present. PERTINENT LABORATORY FINDINGS: Include sodium 129, potassium 5.3, chloride 103, bicarbonate 25, BUN 19, creatinine 0.70, glucose 138, phosphorus 2.2, magnesium 2.1, AST and ALT normal at 29 and 25, r espectively. Prealbumin is low at 10.0. Albumin is also low at 2.4. IMPRESSION: Postoperative day #4 status post laparoscopic hand-assisted colostomy with abdominal w ashout for perforated colorectal carcinoma. The patient is otherwise hemodynamically stable. PLAN: Continue with current medical management including broad-spectrum antibiotic therapy. No fur ther surgical interventions warranted.
[2017-06-02 05:38] LABS: ALT (SGPT) 36 U/L (8-55); AST (SGOT) 28 U/L (5-34); Alkaline Phosphatase 63 U/L (40-150); Anion Gap 11 mmol/L (10-20); BUN (Urea Nitrogen) 17 mg/dL (8.4-25.7); Bilirubin, Total 0.4 mg/dL (0.2-1.2); Calc. Creatinine Clearance 108 mL/min (70-130); Calcium 10.4 mg/dL (7.8-10.44); Carbon Dioxide 22 mmol/L (23-31); Chloride 104 mmol/L (98-107); Estimated GFR-MDRD Greater than 90; Globulin 3.4 g/dL (2.4-3.5); Magnesium 2.3 mg/dL (1.6-2.6); Phosphorus 2.5 mg/dL (2.3-4.7); Protein, Total 5.8 g/dL (5.8-8.1)
[2017-06-02] MEDS: Famotidine 20 MG TAB PO SCH ×2 (08:29→20:05)
[2017-06-02] MEDS: Famotidine/PF 20 mg/2ml Vial SLOW IVP SCH ×2 (08:29→20:07)
[2017-06-02] MEDS: Enoxaparin Sodium 40 MG/0.4 ML SYRINGE SC SCH (11:35)
[2017-06-02] MEDS ORDERED: Magnesium Citrate 300 ML BOT PO SCH (12:15)
--- NOTE | 2017-06-02 13:12 | PRG ---
DATE OF SERVICE: 06/02/2017 SUBJECTIVE: I am seeing Mr. Driver on behalf of Dr. Brunson. The patient is status post end colos hernan and oversew of perforated colorectal carcinoma. He reports adequate pain control. He is fatig ued and anorexic. Denies any fevers or chills. OBJECTIVE: VITAL SIGNS: Today includes blood pressure 135/67, pulse 95, respiration rate 18, temperature is 97 .4 degrees Fahrenheit, oxygen saturation is 99% on room air. HEENT: Reveals normocephalic and atraumatic. HEART: Reveals regular rate and rhythm, no murmurs or gallops auscultated. LUNGS: Clear to auscultation bilaterally. Breathing is regular and unlabored. ABDOMEN: Soft and nondistended. Incision remains intact, clean, and dry. Ostomy is viable. The o stium of the ostomy is a piece of hard stool, no gas in the bag. He has no gross peritoneal signs o n examination. Bowel sounds are present and normoactive. Irving-Wong drain returns scant seropur ulent fluid. LABORATORY DATA: Today includes metabolic profile, sodium 132, potassium is 4.7, chloride is 104, b icarbonate 22, BUN 17, creatinine 0.66, glucose 108, magnesium 2.3, total bilirubin 0.4, AST and ALT normal at 28 and 36 respectively. IMPRESSION: Status post diverting colostomy and oversew of perforated colorectal carcinoma. There is clinical evidence of resolving peritonitis. PLAN: Increase activity as tolerated. The patient remains tolerant of clear liquid diet, which we will continue until adequate bowel function is achieved. He is on TPN for enteral nutritional suppl ementation. We will initiate a bowel regimen to resolve recurrent constipation. Above findings and plan discussed with the patient and his at bedside. They indicated understanding of the infor mation given. I have answered their questions.
[2017-06-02] MEDS: Senokot 8.6 MG TAB PO SCH (20:05)
[2017-06-02] MEDS ORDERED: Acetaminophen 325 MG TAB PO SCH (20:30)
[2017-06-02] MEDS ORDERED: Sodium Chloride 0.9% 500 ML IVPB SCH (20:45)
[2017-06-02 20:58] LABS: Anion Gap 11 mmol/L (10-20); BUN (Urea Nitrogen) 18 mg/dL (8.4-25.7); Calc. Creatinine Clearance 92 mL/min (70-130); Calcium 10.4 mg/dL (7.8-10.44); Carbon Dioxide 23 mmol/L (23-31); Chloride 104 mmol/L (98-107); Estimated GFR-MDRD Greater than 90; Magnesium 2.2 mg/dL (1.6-2.6); Phosphorus 2.6 mg/dL (2.3-4.7)
--- NOTE | 2017-06-02 21:13 | PDOC.PN ---
- Subjective Encounter Start Date: 06/02/17 Encounter Start Time: 21:11 CTSP for elevated HR. Pt denies chest pain, denies palpitations. - Objective MAR Reviewed: Yes Vital Signs & Weight: Vital Signs (12 hours) Temp Pulse Resp BP Pulse Ox 06/02/17 19:16 96 16 97 06/02/17 16:35 110 H 06/02/17 16:00 97.9 F 16 124/78 98 06/02/17 15:09 98 16 06/02/17 11:39 97.4 F L 95 18 135/67 99 06/02/17 10:49 95 16 100 Weight Admit Weight 155 lb Weight 148 lb 8 oz I&O: 06/01/17 06/02/17 06/03/17 07:59 06:59 06:59 Intake Total 2272 Output Total 1360 Balance 912 Result Diagrams: 05/31/17 05:30 06/02/17 20:33 Additional Labs: Accuchecks 06/02/17 06/02/17 06/02/17 17:58 11:37 05:36 POC Glucose 145 H 131 H 128 H 06/02/17 00:06 POC Glucose 139 H Phys Exam - Physical Examination Constitutional: NAD HEENT: moist MMs Neck: no JVD Respiratory: no wheezing, no rales, no rhonchi Cardiovascular: no significant murmur, no rub irregular, tachy, no rubs, no gallop midl tender to palpate, no guarding Neurological: non-focal, moves all 4 limbs Skin: no rash Dx/Plan - Plan Pt is 67 yrs old male 1. S/P Diverting colostomy + Colon ca: Management per primary team On TPN for nutrition 2. Aflutter: EKG positive flutter vs sinus tach Will check bmp, mag and phos Check 2d echo Will check serial cardiac enzymes. Plan to give 500 cc ns bolus Will start patient on cardizem drip Will consult cardio to evaluate patient. Will transfer pt to IMU for close monitoring 3. Pain: PRN pain meds case d/w pt & RN
[2017-06-02 21:47] LABS: Troponin I 0.017 ng/mL (< 0.028)
[2017-06-02] MEDS: D5 1/2 NS w/20 mEq KCL 1,000 ML IV SCH (22:31)
[2017-06-02] MEDS: SODIUM CHLORIDE IV SCH ×7 (22:34)
[2017-06-02] MEDS: SODIUM PHOSPHATE IV SCH ×7 (22:34)
[2017-06-02] MEDS: SODIUM ACETATE IV SCH ×7 (22:34)
[2017-06-02] MEDS: [UNRECOGNIZED DRUG - OTHER] IV SCH ×7 (22:34)
[2017-06-03] MEDS: HYDROmorphone HCl/PF 0.1 MG/ML 100 ML IVPB SCH (00:14)
[2017-06-03 05:47] LABS: ALT (SGPT) 28 U/L (8-55); AST (SGOT) 18 U/L (5-34); Alkaline Phosphatase 70 U/L (40-150); Anion Gap 8 mmol/L (10-20); BUN (Urea Nitrogen) 17 mg/dL (8.4-25.7); Bilirubin, Total 0.4 mg/dL (0.2-1.2); Calc. Creatinine Clearance 105 mL/min (70-130); Calcium 10.2 mg/dL (7.8-10.44); Carbon Dioxide 26 mmol/L (23-31); Chloride 103 mmol/L (98-107); Estimated GFR-MDRD Greater than 90; Globulin 3.4 g/dL (2.4-3.5); Magnesium 2.3 mg/dL (1.6-2.6); Phosphorus 2.4 mg/dL (2.3-4.7); Protein, Total 5.7 g/dL (5.8-8.1)
[2017-06-03] MEDS: Famotidine/PF 20 mg/2ml Vial SLOW IVP SCH (08:40)
[2017-06-03] MEDS: MEROPENEM 1 GM/50 ML 1 GM in Premix Bag 1 BAG IVPB SCH ×3 (10:32→23:54)
[2017-06-03] MEDS: Senokot 8.6 MG TAB PO SCH ×2 (10:33→20:59)
[2017-06-03] MEDS: Famotidine 20 MG TAB PO SCH ×2 (10:33→20:58)
[2017-06-03] MEDS: Enoxaparin Sodium 40 MG/0.4 ML SYRINGE SC SCH (10:33)
--- NOTE | 2017-06-03 12:47 | PDOC.PN ---
- Subjective Encounter Start Date: 06/03/17 Encounter Start Time: 11:55 Subjective: f/u for ? A-flutter with RVR on Cardizem gtt. Rate improved and SR noted -: per nsg. Pt denies any CP, SOB or palpitations. Feels ok overall. - Objective MAR Reviewed: Yes Vital Signs & Weight: Vital Signs (12 hours) Temp Pulse Resp BP Pulse Ox 06/03/17 11:37 98 18 99 06/03/17 11:00 101 H 16 114/69 97 06/03/17 08:19 100 24 H 99 06/03/17 08:00 98.6 F 98 18 99 06/03/17 07:09 98.6 F 102 H 18 115/63 96 06/03/17 03:34 98.0 F 151 H 16 97/75 95 Weight Admit Weight 155 lb Weight 152 lb I&O: 06/02/17 06/03/17 06/04/17 06:59 06:59 06:59 Intake Total 3802 21 Output Total 3410 Balance 392 21 Result Diagrams: 05/31/17 05:30 06/03/17 05:01 Additional Labs: Accuchecks 06/03/17 06/02/17 06/02/17 05:34 23:43 20:16 POC Glucose 155 H 127 H 151 H 06/02/17 17:58 POC Glucose 145 H EKG Reviewed by me: Yes (Tele - SR in 90-105's) Phys Exam - Physical Examination Constitutional: NAD alert, responsive HEENT: PERRLA, oral pharynx no lesions Neck: no JVD, supple Respiratory: no wheezing Cardiovascular: RRR colostomy in place with liquid stool Gastrointestinal: soft, non-tender, no distention, positive bowel sounds Musculoskeletal: no edema, pulses present Neurological: normal sensation, moves all 4 limbs Psychiatric: A&O x 3 Skin: normal turgor, cap refill <2 seconds Dx/Plan (1) Sinus tachycardia Code(s): R00.0 - TACHYCARDIA, UNSPECIFIED Status: Acute Comment: Improved with IVF's and Cardizem, wean Cardizem gtt and monitor on telemetry (2) Colon perforation Code(s): K63.1 - PERFORATION OF INTESTINE (NONTRAUMATIC) Status: Acute Comment: s/p diverting colostomy, continue IV abx, local care (3) Peritonitis Code(s): K65.9 - PERITONITIS, UNSPECIFIED Status: Acute Comment: Continue Meropenem (4) Rectal cancer Code(s): C20 - MALIGNANT NEOPLASM OF RECTUM Status: Acute Comment: s/p primary resection showing invasive colon adenocarcinoma (5) Normocytic anemia Code(s): D64.9 - ANEMIA, UNSPECIFIED Status: Acute Comment: Stable currently , supportive, serial H/H monitoring - Plan plan discussed w/ family, continue antibiotics, PT/OT, neonatal social worker, out of bed/ambulate, DVT proph w/SCDs Stable currently -: Wean Cardizem gtt -: Nutritional support with TPN -: PT for mobilization -: AM lab: CMP, CBC, PO3, Mg++ * .
--- NOTE | 2017-06-03 13:17 | CON ---
DATE OF CONSULTATION: 06/03/2017 SERVICE: Pulmonary Medicine. REASON FOR CONSULTATION: [facility] [place] patient. HISTORY OF PRESENT ILLNESS: The patient is a 67-year-old white male with past medical history significant for rectal cancer. He presented to the hospital on 05/28/2017 with abdominal discomfort secondary to a perforated colon. He also had some rectal cancer, which was obstructing the colon. On the floor, he was recovering. His pain was under good control. His vitals were taken and he was found to be tachycardic, which ultimately was identified as being or as representing atrial flutter. At no point during this time, did he have any symptoms of chest discomfort, palpitations, shortness of breath or lightheadedness. He was brought to the [facility] for closer observation and initiated on a Cardizem drip. Overnight, he converted. He remains asymptomatic. He is tolerating p.o. He is having output from the ostomy, which is not significantly changed. PAST MEDICAL HISTORY: 1. Rectal cancer. 2. Melanoma. PAST SURGICAL HISTORY: 1. Postauricular melanoma excision. 2. Left leg fracture, status post repair. 3. Partial colectomy with ostomy placement. FAMILY HISTORY: Noncontributory. SOCIAL HISTORY: Negative for alcohol, tobacco or illicit drug use. He is and has 2 children. He had no exposure to chemicals, dust asbestos or tuberculosis. ALLERGIES: No known drug allergies. MEDICATIONS: List of his inpatient medications were reviewed. Multiple updates were made. REVIEW OF SYSTEMS: General, head, ears, eyes, nose, throat, cardiovascular, respiratory, GI, , musculoskeletal, neurologic and skin is negative except as mentioned in the HPI. PHYSICAL EXAMINATION: VITAL SIGNS: Afebrile, pulse 98, blood pressure 114/69, respirations 16, saturation 97% on room air. GENERAL: Patient is awake, alert, in no apparent distress. LUNGS: Excellent air entry with no prolonged expiratory phase, wheezing, rhonchi or crackles. HEART: Normal rate, regular. ABDOMEN: Soft, nontender, nondistended. Bowel sounds are positive. MUSCULOSKELETAL: No cyanosis or clubbing. No pitting in the bilateral lower extremities. NEUROLOGIC: Grossly nonfocal. LABORATORY DATA: WBC 8.1, hemoglobin 8.7, platelets 278,000. Neutrophils are 78% with a down trending band count of 6%. INR 1.1. Basic metabolic profile and liver function studies were all unremarkable. Potassium of note was 4.4. Magnesium and phosphorus both are within normal limits. Cardiac enzymes negative x1. IMAGING: CT of the abdomen and pelvis demonstrates small nonobstructing left renal calculus. Interval postoperative changes of abdomen and pelvis are identified with other chronic changes. Nothing that looks to be an acute inflammatory process is evident. ASSESSMENT: 1. Atrial flutter with rapid ventricular response, returned to normal sinus rhythm. 2. Gross peritonitis secondary to colonic perforation. 3. Rectal cancer. 4. Status post laparotomy. PLAN: Continue supportive care including antibiotics. He has already transitioned back to normal sinus rhythm. He is stable for transition to telemetry for continued observation. If his atrial flutter recurs, consider cardiology consultation. JAYLAN
[2017-06-03] MEDS: Metoprolol Tartrate 25 MG TAB PO SCH (20:58)
[2017-06-03] MEDS: D5 1/2 NS w/20 mEq KCL 1,000 ML IV SCH (21:05)
[2017-06-03] MEDS: SODIUM CHLORIDE IV SCH ×7 (22:24)
[2017-06-03] MEDS: SODIUM PHOSPHATE IV SCH ×7 (22:24)
[2017-06-03] MEDS: SODIUM ACETATE IV SCH ×7 (22:24)
[2017-06-03] MEDS: [UNRECOGNIZED DRUG - OTHER] IV SCH ×7 (22:24)
[2017-06-04 04:15] LABS: #Eosinphils 0.1 thou/uL (0.0-0.7); #Lymphocytes 1.2 thou/uL (1.20-3.40); #Monocytes 1.3 thou/uL (0.11-0.59); #Neutrophils 6.4 thou/uL (1.40-6.50); %Basophils 0.4 % (0.0-1.0); %Eosinophils 0.8 % (0.0-10.0); %Lymphocytes 13.4 % (21.0-51.0); %Monocytes 14.8 % (0.0-10.0); Mean Platelet Volume 7.8 fL (7.4-10.4); Red Blood Cell (RBC) Count 3.47 mill/uL (4.70-6.10)
[2017-06-04 04:36] LABS: ALT (SGPT) 61 U/L (8-55); AST (SGOT) 53 U/L (5-34); Alkaline Phosphatase 89 U/L (40-150); Anion Gap 9 mmol/L (10-20); BUN (Urea Nitrogen) 19 mg/dL (8.4-25.7); Bilirubin, Total 0.3 mg/dL (0.2-1.2); Calc. Creatinine Clearance 103 mL/min (70-130); Calcium 10.6 mg/dL (7.8-10.44); Carbon Dioxide 28 mmol/L (23-31); Chloride 102 mmol/L (98-107); Estimated GFR-MDRD Greater than 90; Globulin 3.4 g/dL (2.4-3.5); Magnesium 2.4 mg/dL (1.6-2.6); Phosphorus 2.5 mg/dL (2.3-4.7); Protein, Total 5.7 g/dL (5.8-8.1)
[2017-06-04] MEDS: D5 1/2 NS w/20 mEq KCL 1,000 ML IV SCH ×2 (06:22→21:13)
[2017-06-04] MEDS: Senokot 8.6 MG TAB PO SCH ×2 (08:32→20:44)
[2017-06-04] MEDS: Metoprolol Tartrate 25 MG TAB PO SCH ×2 (08:33→20:37)
[2017-06-04] MEDS: MEROPENEM 1 GM/50 ML 1 GM in Premix Bag 1 BAG IVPB SCH ×3 (08:34→23:52)
[2017-06-04] MEDS: Enoxaparin Sodium 40 MG/0.4 ML SYRINGE SC SCH ×2 (08:41→08:42)
[2017-06-04] MEDS: Famotidine 20 MG TAB PO SCH ×2 (08:43→20:38)
--- NOTE | 2017-06-04 10:23 | PRG ---
DATE OF SERVICE: 06/04/2017 SERVICE: Pulmonary Medicine. INTERVAL HISTORY: The patient is doing fine from a respiratory standpoint. He is breathing comfort ably. He had no chest pain or palpitations overnight. Otherwise, he is remaining in his usual stat e of health. He is tolerating p.o. and continues to have good output from his ostomy. PHYSICAL EXAMINATION: VITAL SIGNS: Afebrile with a T-max of 99.2, pulse 105, blood pressure 117/74, respirations 18, satu ration 95% on room air. GENERAL: Patient is awake, alert, in no apparent distress. LUNGS: Excellent air entry. I do not appreciate a prolonged expiratory phase, wheezing, rhonchi, o r crackles. HEART: Tachycardic. Regular. ABDOMEN: Soft, nontender, nondistended. Bowel sounds positive. Ostomy is pink with good color. : Pacheco catheter in place. NEUROLOGIC: Grossly nonfocal. MUSCULOSKELETAL: No cyanosis or clubbing. There is no pitting in the bilateral lower extremities. LABORATORY DATA: WBC 9.0, hemoglobin 9.1, platelets 352,000. Basic metabolic profile is unremarkab le except for calcium of 10.6. Liver function studies are essentially unremarkable, although the T and ALT are marginally elevated at 53 and 61, respectively. ASSESSMENT: 1. Atrial flutter with rapid ventricular response, returned to normal sinus rhythm with tachycardia . 2. Gross peritonitis secondary to colonic perforation. 3. Rectal cancer. 4. Status post laparotomy. 5. Elevated transaminases, likely secondary to TPN. PLAN: We will continue supportive care. The patient can be transitioned to the telemetry unit. We will continue to follow for the time being. Hopefully, he will transition off of the TPN. If he s uccessfully does this after a couple of days, repeat liver function studies would be indicated to pr ove that this is resolving. Pacheco catheter will be removed today.
--- NOTE | 2017-06-04 16:36 | PDOC.PN ---
- Subjective Encounter Start Date: 06/04/17 Encounter Start Time: 16:35 Subjective: f/u A-flutter RVR on Cardizem gtt. Rate variable on tele. - Objective MAR Reviewed: Yes Vital Signs & Weight: Vital Signs (12 hours) Temp Pulse Resp BP Pulse Ox 06/04/17 11:55 98.3 F 97 18 111/65 99 06/04/17 08:00 99.2 F 105 H 18 117/74 98 Weight Admit Weight 155 lb Weight 154 lb 12.8 oz I&O: 06/03/17 06/04/17 06/05/17 06:59 06:59 06:59 Intake Total 3802 2668.0 250 Output Total 3410 3020 350 Balance 392 -352.0 -100 Result Diagrams: 06/04/17 03:57 06/04/17 03:57 Additional Labs: Accuchecks 06/04/17 06/04/17 06/03/17 12:07 05:55 23:45 POC Glucose 126 H 146 H 153 H 06/03/17 18:28 POC Glucose 133 H Laboratory Tests 06/02/17 06/03/17 06/04/17 04:25 05:01 03:57 AST 28 18 53 H ALT 36 28 61 H EKG Reviewed by me: Yes (Tele - Sinus tachycardia in 100's) Phys Exam - Physical Examination Constitutional: NAD HEENT: PERRLA, oral pharynx no lesions Neck: no JVD, supple diminished in bases Respiratory: no wheezing tachycardic Cardiovascular: no significant murmur + colostomy in place with liquid stool Gastrointestinal: soft, no distention, positive bowel sounds Musculoskeletal: pulses present Psychiatric: A&O x 3 Skin: normal turgor, cap refill <2 seconds Dx/Plan (1) Sinus tachycardia Code(s): R00.0 - TACHYCARDIA, UNSPECIFIED Status: Acute Comment: Improved with IVF's and Cardizem gtt, d/c Cardizem, increase Metoprolol 25mg BID (2) Colon perforation Code(s): K63.1 - PERFORATION OF INTESTINE (NONTRAUMATIC) Status: Acute Comment: s/p diverting colostomy, continue IV abx, local care (3) Peritonitis Code(s): K65.9 - PERITONITIS, UNSPECIFIED Status: Acute Comment: Continue Meropenem 1gm IV q8h (4) Rectal cancer Code(s): C20 - MALIGNANT NEOPLASM OF RECTUM Status: Acute Comment: s/p primary resection showing invasive colon adenocarcinoma (5) Normocytic anemia Code(s): D64.9 - ANEMIA, UNSPECIFIED Status: Acute Comment: Stable currently , supportive, serial H/H monitoring - Plan plan discussed w/ family, continue antibiotics, PT/OT, social science analyst, out of bed/ambulate, DVT proph w/SCDs Stable overall -: Continue Meropenem 1gm IV q8h -: OOB/ambulate -: Increase Metoprolol 25mg BID -: Nutritional support with TPN * AM lab: CMP, Mg++, PO3, CBC
[2017-06-04] MEDS: SODIUM CHLORIDE IV SCH ×6 (22:41)
[2017-06-04] MEDS: MAGNESIUM SULFATE IV SCH ×6 (22:41)
[2017-06-04] MEDS: [UNRECOGNIZED DRUG - OTHER] IV SCH ×6 (22:41)
[2017-06-04] MEDS: SODIUM ACETATE IV SCH ×6 (22:41)
[2017-06-05 05:18] LABS: ALT (SGPT) 85 U/L (8-55); AST (SGOT) 51 U/L (5-34); Alkaline Phosphatase 93 U/L (40-150); Anion Gap 9 mmol/L (10-20); BUN (Urea Nitrogen) 18 mg/dL (8.4-25.7); Bilirubin, Total 0.3 mg/dL (0.2-1.2); Calc. Creatinine Clearance 104 mL/min (70-130); Calcium 10.2 mg/dL (7.8-10.44); Carbon Dioxide 26 mmol/L (23-31); Chloride 103 mmol/L (98-107); Estimated GFR-MDRD Greater than 90; Globulin 3.4 g/dL (2.4-3.5); Magnesium 2.3 mg/dL (1.6-2.6); Phosphorus 2.2 mg/dL (2.3-4.7); Protein, Total 5.7 g/dL (5.8-8.1)
[2017-06-05] MEDS: MEROPENEM 1 GM/50 ML 1 GM in Premix Bag 1 BAG IVPB SCH ×3 (09:07→23:43)
[2017-06-05] MEDS: Metoprolol Tartrate 25 MG TAB PO SCH ×2 (09:08→20:47)
[2017-06-05] MEDS: Senokot 8.6 MG TAB PO SCH ×2 (09:08→20:47)
[2017-06-05] MEDS: Famotidine 20 MG TAB PO SCH ×2 (09:08→20:47)
[2017-06-05] MEDS: Enoxaparin Sodium 40 MG/0.4 ML SYRINGE SC SCH (09:09)
[2017-06-05] MEDS ORDERED: HYDROcodone/Acetaminophen 10/325 mg Tablet PO PRN (09:26)
[2017-06-05] MEDS ORDERED: Fentanyl 100 MCG/2 ML VIAL SLOW IVP PRN (09:28)
--- NOTE | 2017-06-05 11:37 | PRG ---
DATE OF SERVICE: 06/05/2017 SERVICE: Pulmonary Medicine INTERVAL HISTORY: The patient is doing fine from a cardiovascular and respiratory standpoint. He d enies any chest pain or shortness of breath. He is tolerating p.o. but does not have much of an kim etite for the type of food that is being offered to him. That being said, he thinks that if he were to be offered more substantial food, he would likely be able to clear his plate. Otherwise, there are no overnight events. He remains in normal sinus rhythm. PHYSICAL EXAMINATION: VITAL SIGNS: Afebrile, pulse 94, blood pressure 127/73, respirations 18, saturation 95% on room air . GENERAL: The patient is awake, alert, no apparent distress. LUNGS: Excellent air entry with no prolonged expiratory phase, wheezing, rhonchi or crackles. HEART: Normal rate, regular. ABDOMEN: Soft, nontender, nondistended, bowel sounds positive. MUSCULOSKELETAL: No cyanosis or clubbing. No pitting in the bilateral lower extremities. NEUROLOGIC: Grossly nonfocal. LABORATORY DATA: WBC 9.0, hemoglobin 9.1 and stable, platelets 350,000. Basic metabolic profile is completely unremarkable except for sodium 134. AST and ALT are stable and are slightly up trending . Phosphorus was marginally low at 2.2 with a normal magnesium. ASSESSMENT: 1. Atrial flutter with rapid ventricular response, return to normal sinus rhythm. 2. Peritonitis secondary to colonic perforation. 3. Rectal cancer. 4. Status post laparotomy. 5. Elevated transaminases, secondary to TPN likely. PLAN: Pulmonary will continue to follow if the patient remains in this location. From my perspecti ve, he is stable for transition to the telemetry unit. We will continue focusing our efforts on mob ilizing the patient. Hopefully, we can transition him off the TPN to enteral nutrition over the nex t 1-2 days. Once that happens, we will need to make certain the LFTs returned to normal.
--- NOTE | 2017-06-05 14:23 | PDOC.PN ---
- Subjective Encounter Start Date: 06/05/17 Encounter Start Time: 14:05 Subjective: f/u for A-flutter RVR now with SR. No new complaints other than the food. - Objective MAR Reviewed: Yes Vital Signs & Weight: Vital Signs (12 hours) Temp Pulse Resp BP Pulse Ox 06/05/17 12:00 98.8 F 18 118/79 06/05/17 08:00 99.5 F 94 18 95 06/05/17 07:10 99.5 F 94 18 127/73 95 06/05/17 04:00 97.8 F 93 20 118/69 96 Weight Admit Weight 155 lb Weight 157 lb 3.2 oz I&O: 06/04/17 06/05/17 06/06/17 06:59 06:59 06:59 Intake Total 2668.0 1970.0 2.0 Output Total 3020 1460 Balance -352.0 510.0 2.0 Result Diagrams: 06/04/17 03:57 06/05/17 04:41 Additional Labs: Accuchecks 06/05/17 06/05/17 06/04/17 10:24 05:36 20:38 POC Glucose 147 H 138 H 155 H EKG Reviewed by me: Yes (Tele - Sinus tach in low 100's) Phys Exam - Physical Examination Constitutional: NAD HEENT: PERRLA, oral pharynx no lesions Neck: no JVD, supple Respiratory: no wheezing tachycardia colostomy in place Gastrointestinal: soft, non-tender, no distention, positive bowel sounds Musculoskeletal: no edema, pulses present Neurological: normal sensation, moves all 4 limbs Psychiatric: A&O x 3 Skin: normal turgor, cap refill <2 seconds Dx/Plan (1) Sinus tachycardia Code(s): R00.0 - TACHYCARDIA, UNSPECIFIED Status: Acute Comment: Improved with IVF's and Cardizem gtt, d/c Cardizem, increase Metoprolol 25mg BID (2) Colon perforation Code(s): K63.1 - PERFORATION OF INTESTINE (NONTRAUMATIC) Status: Acute Comment: s/p diverting colostomy, continue IV abx, local care (3) Peritonitis Code(s): K65.9 - PERITONITIS, UNSPECIFIED Status: Acute Comment: Continue Meropenem 1gm IV q8h (4) Rectal cancer Code(s): C20 - MALIGNANT NEOPLASM OF RECTUM Status: Acute Comment: s/p primary resection showing invasive colon adenocarcinoma (5) Normocytic anemia Code(s): D64.9 - ANEMIA, UNSPECIFIED Status: Acute Comment: Stable currently , supportive, serial H/H monitoring - Plan plan discussed w/ family, continue antibiotics, PT/OT, social scientist, out of bed/ambulate, DVT proph w/SCDs Stable overall -: ADAT to soft mech -: Wean off TPN -: OOB/ambulate -: Continue Metoprolol 25mg BID * Transfer to Tele * AM lab: CMP, Mg++, PO3
[2017-06-05] MEDS: HYDROcodone/Acetaminophen 10/325 mg Tablet PO PRN ×2 (15:49→22:04)
[2017-06-05] MEDS: [UNRECOGNIZED DRUG - OTHER] IV SCH ×6 (22:28)
[2017-06-05] MEDS: MAGNESIUM SULFATE IV SCH ×6 (22:28)
[2017-06-05] MEDS: SODIUM ACETATE IV SCH ×6 (22:28)
[2017-06-05] MEDS: SODIUM CHLORIDE IV SCH ×6 (22:28)
[2017-06-06 05:41] LABS: ALT (SGPT) 69 U/L (8-55); AST (SGOT) 30 U/L (5-34); Alkaline Phosphatase 97 U/L (40-150); Anion Gap 12 mmol/L (10-20); BUN (Urea Nitrogen) 19 mg/dL (8.4-25.7); Bilirubin, Total 0.2 mg/dL (0.2-1.2); Calc. Creatinine Clearance 109 mL/min (70-130); Calcium 10.7 mg/dL (7.8-10.44); Carbon Dioxide 25 mmol/L (23-31); Chloride 102 mmol/L (98-107); Estimated GFR-MDRD Greater than 90; Globulin 3.5 g/dL (2.4-3.5); Magnesium 2.4 mg/dL (1.6-2.6); Phosphorus 2.7 mg/dL (2.3-4.7); Protein, Total 5.9 g/dL (5.8-8.1)
[2017-06-06] MEDS: MEROPENEM 1 GM/50 ML 1 GM in Premix Bag 1 BAG IVPB SCH ×3 (09:38→23:52)
[2017-06-06] MEDS: Famotidine 20 MG TAB PO SCH ×2 (09:39→20:45)
[2017-06-06] MEDS: Senokot 8.6 MG TAB PO SCH ×2 (09:39→20:44)
[2017-06-06] MEDS: Metoprolol Tartrate 25 MG TAB PO SCH ×2 (09:39→20:44)
[2017-06-06] MEDS: Enoxaparin Sodium 40 MG/0.4 ML SYRINGE SC SCH (09:40)
[2017-06-06] MEDS: HYDROcodone/Acetaminophen 10/325 mg Tablet PO PRN ×2 (09:44→22:12)
--- NOTE | 2017-06-06 15:10 | PDOC.PN ---
- Subjective Encounter Start Date: 06/06/17 Encounter Start Time: 14:50 Subjective: f/u colon perforation, peritonitis with diverting colostomy with colon -: adenocarcinoma. Feeling well. Tolerating po intake. Tele showing SR. -: Ambulated with PT without difficulty. - Objective MAR Reviewed: Yes Vital Signs & Weight: Vital Signs (12 hours) Temp Pulse Resp BP Pulse Ox 06/06/17 11:20 98.4 F 102 H 20 117/76 96 06/06/17 08:00 98.2 F 93 20 96 06/06/17 07:25 98.2 F 93 20 122/71 96 06/06/17 04:00 98.7 F 100 20 124/68 96 Weight Admit Weight 155 lb Weight 157 lb 1.6 oz I&O: 06/05/17 06/06/17 06/07/17 06:59 06:59 06:59 Intake Total 1970.0 1442.0 Output Total 1460 1527 300 Balance 510.0 -85.0 -300 Result Diagrams: 06/04/17 03:57 06/06/17 04:30 Additional Labs: Accuchecks 06/06/17 06/06/17 06/05/17 11:19 05:46 21:03 POC Glucose 115 H 133 H 142 H 06/05/17 16:40 POC Glucose 123 H EKG Reviewed by me: Yes (Tele - SR in 80's) Phys Exam - Physical Examination Constitutional: NAD HEENT: PERRLA, oral pharynx no lesions Neck: no JVD, supple Respiratory: no wheezing Cardiovascular: RRR + colostomy in place Gastrointestinal: soft, no distention, positive bowel sounds Musculoskeletal: pulses present, edema present Neurological: normal sensation, moves all 4 limbs Psychiatric: A&O x 3 Skin: normal turgor, cap refill <2 seconds Dx/Plan (1) Sinus tachycardia Code(s): R00.0 - TACHYCARDIA, UNSPECIFIED Status: Acute Comment: d/c Cardizem, increase Metoprolol 25mg BID, resolved (2) Colon perforation Code(s): K63.1 - PERFORATION OF INTESTINE (NONTRAUMATIC) Status: Acute Comment: s/p diverting colostomy, continue IV abx, local care (3) Peritonitis Code(s): K65.9 - PERITONITIS, UNSPECIFIED Status: Acute Comment: Continue Meropenem 1gm IV q8h (4) Rectal cancer Code(s): C20 - MALIGNANT NEOPLASM OF RECTUM Status: Acute Comment: s/p primary resection showing invasive colon adenocarcinoma (5) Normocytic anemia Code(s): D64.9 - ANEMIA, UNSPECIFIED Status: Acute Comment: Stable currently , supportive, serial H/H monitoring - Plan continue antibiotics, PT/OT, director social welfare, out of bed/ambulate, DVT proph w/ SCDs Stable currently -: Wean off TPN today -: ADAT and monitor intake -: Continue Metoprolol 25mg BID -: OOB/ambulate * Ok to transfer to medical floor * Ensure BID with meals
--- NOTE | 2017-06-06 16:16 | PRG ---
DATE OF SERVICE: 06/06/2017 SERVICE: Pulmonary Medicine. INTERVAL HISTORY: The patient is doing great from a cardiovascular and respiratory standpoint. He denies any current fevers, chills, nausea or vomiting. He is essentially in his usual state of heal th. 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 His p.o. is actually improving dramatically and hopefully w ill be off TPN in 1 to 2 days. PHYSICAL EXAMINATION: VITAL SIGNS: Afebrile, pulse 93, blood pressure 117/76, respirations 20, saturation 96% on room air . GENERAL: The patient is awake, alert, in no apparent distress. LUNGS: Excellent air entry with no prolonged expiratory phase. There is no wheezing, rhonchi, or c rackles. HEART: Normal rate, regular. ABDOMEN: Soft, nontender, nondistended. Bowel sounds positive. MUSCULOSKELETAL: No cyanosis or clubbing. No pitting in the bilateral lower extremities. NEUROLOGIC: Grossly nonfocal. LABORATORY DATA: Basic metabolic profile is unremarkable except for potassium of 3.7. Calcium is 1 0.7. Liver function studies are otherwise unremarkable. ASSESSMENT: 1. Atrial flutter with rapid ventricular response, returned to normal sinus rhythm. 2. Peritonitis secondary to colon perforation. 3. Status post laparotomy, partial colectomy, and colostomy formation. 4. Rectal cancer. 5. Elevated transaminases, improving. PLAN: The patient is, once again, stable for transition out of the IMCU to the telemetry unit. [facility] [place] [facility] will continue to follow while he remains in this location.
[2017-06-07 04:50] LABS: ALT (SGPT) 68 U/L (8-55); AST (SGOT) 34 U/L (5-34); Alkaline Phosphatase 98 U/L (40-150); Anion Gap 11 mmol/L (10-20); BUN (Urea Nitrogen) 21 mg/dL (8.4-25.7); Bilirubin, Total 0.3 mg/dL (0.2-1.2); Calc. Creatinine Clearance 106 mL/min (70-130); Calcium 10.5 mg/dL (7.8-10.44); Carbon Dioxide 26 mmol/L (23-31); Chloride 102 mmol/L (98-107); Estimated GFR-MDRD Greater than 90; Globulin 3.4 g/dL (2.4-3.5); Magnesium 2.1 mg/dL (1.6-2.6); Phosphorus 3.2 mg/dL (2.3-4.7); Protein, Total 5.7 g/dL (5.8-8.1)
[2017-06-07] MEDS: MEROPENEM 1 GM/50 ML 1 GM in Premix Bag 1 BAG IVPB SCH ×2 (08:38→16:32)
[2017-06-07] MEDS: Senokot 8.6 MG TAB PO SCH ×2 (08:39→20:43)
[2017-06-07] MEDS: Famotidine 20 MG TAB PO SCH ×2 (08:39→20:43)
[2017-06-07] MEDS: Enoxaparin Sodium 40 MG/0.4 ML SYRINGE SC SCH (08:39)
[2017-06-07] MEDS: Metoprolol Tartrate 25 MG TAB PO SCH ×2 (08:39→20:43)
[2017-06-07 12:09] VITALS: BMI 22.9
--- NOTE | 2017-06-07 15:06 | PRG ---
DATE OF SERVICE: 06/07/2017 SERVICE: Pulmonary Medicine. INTERVAL HISTORY: The patient is doing great from a respiratory standpoint. He denies any current fevers, chills, nausea, vomiting or chest discomfort. He is otherwise returning to his usual state of health. He does not have significant abdominal discomfort. He is tolerating p.o. There have be en no events overnight. He is transitioned off of his TPN. PHYSICAL EXAMINATION: VITAL SIGNS: T-max 99.2, pulse 92, blood pressure 115/63, respirations 18, saturation 98% on room a ir. GENERAL: The patient is awake, alert, in no apparent distress. LUNGS: Excellent air entry with no prolonged expiratory phase, wheezing, rhonchi or crackles. HEART: Normal rate and regular. ABDOMEN: Soft, nontender, nondistended. Bowel sounds positive. MUSCULOSKELETAL: No cyanosis or clubbing. No pitting in the bilateral lower extremities. NEUROLOGIC: Grossly nonfocal. LABORATORY DATA: WBC 9.0, hemoglobin 9.1, platelets 352,000. INR 1.1. Basic metabolic profile and liver function studies are essentially unremarkable except for stable/down trending ALT. ASSESSMENT: 1. Atrial flutter with rapid ventricular response, returned to normal sinus rhythm. 2. Peritonitis secondary to colon perforation. 3. Status post laparotomy and partial colectomy with colostomy formation. 4. Rectal cancer. PLAN: The patient remains stable for transition out of the [facility]. We can likely transition him over to p.o. regimen of antibiotics and complete a 10-day course from the surgical procedure. Pulmonary will continue to follow while he remains in this location.
--- NOTE | 2017-06-07 19:34 | PDOC.PN ---
- Subjective Encounter Start Date: 06/07/17 Encounter Start Time: 19:15 Subjective: f/u for peritonitis s/p diverting colostomy after perforation due to colon -: adenocarcinoma. Feels much better overall. Off TPN and tolerating po intake -: Ambulating with PT. - Objective MAR Reviewed: Yes Vital Signs & Weight: Vital Signs (12 hours) Temp Pulse Resp BP BP Pulse Ox 06/07/17 16:00 99 F 99 18 99 06/07/17 15:45 99 F 99 18 135/70 99 06/07/17 12:00 98.3 F 92 18 115/63 98 06/07/17 08:00 98.4 F 100 18 06/07/17 07:32 98.4 F 100 18 104/67 98 Weight Admit Weight 155 lb Weight 155 lb 8 oz I&O: 06/06/17 06/07/17 06/08/17 06:59 06:59 06:59 Intake Total 1442.0 570 Output Total 1527 1460 5 Balance -85.0 -890 -5 Result Diagrams: 06/04/17 03:57 06/07/17 04:15 Additional Labs: Accuchecks 06/07/17 06/07/17 06/06/17 10:31 05:52 20:55 POC Glucose 97 85 98 Laboratory Tests 06/02/17 06/03/17 06/04/17 04:25 05:01 03:57 AST 28 18 53 H ALT 36 28 61 H Phys Exam - Physical Examination Constitutional: NAD HEENT: PERRLA, oral pharynx no lesions Neck: no JVD, supple Respiratory: no wheezing Cardiovascular: RRR colostomy in place Gastrointestinal: soft, non-tender, no distention, positive bowel sounds Musculoskeletal: no edema, pulses present Neurological: normal sensation, moves all 4 limbs Psychiatric: A&O x 3 Skin: normal turgor, cap refill <2 seconds Dx/Plan (1) Sinus tachycardia Code(s): R00.0 - TACHYCARDIA, UNSPECIFIED Status: Acute Comment: d/c Cardizem, increase Metoprolol 25mg BID, resolved (2) Colon perforation Code(s): K63.1 - PERFORATION OF INTESTINE (NONTRAUMATIC) Status: Acute Comment: s/p diverting colostomy, continue Meropenem, likely can transition to po abx coverage, local care (3) Peritonitis Code(s): K65.9 - PERITONITIS, UNSPECIFIED Status: Acute Comment: Continue Meropenem 1gm IV q8h, ? transition to po abx coverage (4) Rectal cancer Code(s): C20 - MALIGNANT NEOPLASM OF RECTUM Status: Acute Comment: s/p primary resection showing invasive colon adenocarcinoma (5) Normocytic anemia Code(s): D64.9 - ANEMIA, UNSPECIFIED Status: Acute Comment: Stable currently , supportive, serial H/H monitoring - Plan plan discussed w/ family, continue antibiotics, PT/OT, social media strategist, out of bed/ambulate, DVT proph w/SCDs Stable overall -: OOB/ambulate -: ADAT -: Transition to po abx -: Continue Metoprolol 25mg BID * Likely home in 24h
--- NOTE | 2017-06-07 21:24 | PRG ---
DATE OF SERVICE: 06/07/2017 SUBJECTIVE: Mr. Driver is feeling well. He is not having any pain. He is tolerating his diet and learning how to take care of his colostomy. OBJECTIVE: He is afebrile, heart rate is in the 90s-100s and he has scant output from his BLANCA drain. The drainage in the tubing alternates from being feculent to being clear and there is very little in the bulb. His incision is dressed and his other laparoscopic incisions are healing well. ASSESSMENT: Controlled leak from rectal perforation associated with cancer. PLAN: I plan to treat this with drainage and antibiotics and he will likely go home with his BLANCA in place. The nurses are to teach BLANCA care and colostomy care. If he is discharged home over the week, he can follow up with me in the clinic next week. Otherwise, I will see him on Saturday.
[2017-06-08] MEDS: MEROPENEM 1 GM/50 ML 1 GM in Premix Bag 1 BAG IVPB SCH ×2 (00:02→09:01)
[2017-06-08 03:52] LABS: PTT 42.7 SEC (22.9-36.1); Prothrombin Time 15.4 SEC (12.0-14.7)
[2017-06-08] MEDS: Famotidine 20 MG TAB PO SCH (09:00)
[2017-06-08] MEDS: Senokot 8.6 MG TAB PO SCH (09:00)
[2017-06-08] MEDS: Metoprolol Tartrate 25 MG TAB PO SCH (09:00)
[2017-06-08] MEDS: Enoxaparin Sodium 40 MG/0.4 ML SYRINGE SC SCH (09:01)
[2017-06-08 11:43] VITALS: BP 118/68; TEMP 98.5
--- NOTE | 2017-06-08 20:49 | DIS ---
DATE OF ADMISSION: 05/28/2017 DATE OF DISCHARGE: 06/08/2017 DISCHARGE DIAGNOSES: 1. Status post rectal perforations secondarily to rectal adenocarcinoma. 2. Rectal adenocarcinoma with metastasis to the liver and lungs. 3. Status post laparoscopic assisted colectomy with diverting colostomy. 4. Atrial flutter/atrial fibrillation with rapid ventricular response, resolved. 5. Chronic normocytic anemia. 6. Hyponatremia, mild, resolving. 7. Peritonitis secondary to colon perforation, improved. CONSULTATIONS: Dr. Hopkins and Boy with General Surgery Service. Dr. Davey with Pulmonology Se [facility]. Medical Oncology Service. PERTINENT LABORATORY AND X-RAY FINDINGS: Sodium ranged between 129 to 135, phosphorus ranged betwee n 2.2 to 3.2, magnesium ranged between 2.1 to 2.4, albumin ranged between 2.3 to 2.4, prealbumin ran ged between 10 to 14. CBC showed a hemoglobin ranging between 8.6-10.9. Acute abdominal series kya ed 05/28/2017 showed gas and fecal material in the colon without evidence of large or small-bowel ob struction. No free intraperitoneal air. CT of the abdomen and pelvis dated 05/28/2017 showed diffu se wall thickening of the colon from the level of the sigmoid to the level of the rectum, developmen t of stool filled collection ventral to the distal colon, evidence of colonic perforation noted. As sociated free intraperitoneal gas seen throughout the abdomen and pelvis. No evidence of bowel obst ruction. Low density lesion in the right lobe of the liver consistent with hepatic metastatic proce ss. HOSPITAL COURSE: Patient was admitted initially after presenting with abdominal pain in the context of known recent diagnosis of rectal adenocarcinoma. Patient was preparing for chemotherapy in the hopes of avoiding acute surgical intervention when developing increased abdominal pain with perforat ion of the colon. The patient developed peritonitis, prompting surgical intervention proceeding wit h colostomy with abdominal washout and repair of colonic perforation. The patient was managed in e critical care unit postoperatively developing atrial fibrillation/atrial flutter transiently. The patient required intravenous rate control measures in addition to oral measures transitioning to me toprolol with return of sinus mechanism. Due to patient's diverting colostomy, the patient was plac ed on TPN, total parenteral nutrition for approximately 1 week. The patient transitioned to clear l iquids progressing to mechanical soft and eventual regular texture diet without complication. The p atient received local wound care for colostomy care in addition to indwelling Irving-Wong drain. The patient received broad spectrum IV antibiotic coverage with meropenem throughout the hospital co urse with normalization of white blood cell counts and no evidence of documented fever. Overall, diana ruvalcaba remained clinically stable through the remainder of the hospital course with plans to complete antibiotic therapy through oral route after discharge. The patient is stable and ready for dischar on 06/08/2011. DISCHARGE MEDICATIONS: 1. Levaquin 750 mg 1 tab p.o. daily x10 days. 2. Metoprolol 25 mg one tab p.o. b.i.d. FOLLOWUP: Patient may followup with his primary care provider, Dr. Mily Cagle within 7 days of discharge. Patient will follow up with Dr. Brunson within 3 days of discharge. Patient may followu p with the Cancer [facility] and to call their office for appointment time and date. CONDITION ON DISCHARGE: Fair. ACTIVITY: Ad howard. DIET: Regular as tolerated. CODE STATUS: FULL. DISPOSITION: Home on 06/08/2017. Total time for preparing and coordinating discharge 36 minutes.
--- NOTE | 2017-06-12 19:19 | EKG ---
Test Reason : STAT TACHY Blood Pressure : / mmHG Vent. Rate : 151 BPM Atrial Rate : 302 BPM P-R Int : 000 ms QRS Dur : 088 ms QT Int : 296 ms P-R-T Axes : 259 010 250 degrees QTc Int : 469 ms Atrial flutter with 2:1 A-V conduction Marked ST abnormality, possible inferior subendocardial injury Abnormal ECG No previous ECGs available Confirmed by YAMIL PARKINSON (2) on 06/12/2017 7:19:02 PM Referred By: RANDAL GR Confirmed By:YAMIL PARKINSON
== END 2017-06-08 16:49 | disposition home or self-care (01) | DRG 329 ==
LOC: ONC 12:14 → IMCU/EMU 06-02 22:06 → ONC 06-07 15:20
PROVIDERS: ADMIT Internal Medicine Hematology & Oncology; ATTEND Internal Medicine Hematology & Oncology
PROC: 0DQN0ZZ Repair Sigmoid Colon, Open Approach (ICD-10-PCS; principal; 2017-05-28)
PROC: 0D1N0Z4 Bypass Sigmoid Colon to Cutaneous, Open Approach (ICD-10-PCS; 2017-05-28)
PROC: 0DBE0ZX Excision of Large Intestine, Open Approach, Diagnostic (ICD-10-PCS; 2017-05-28)
DX: K63.1 Perforation of intestine (nontraumatic) (principal); K65.8 Other peritonitis; C78.7 Secondary malignant neoplasm of liver and intrahepatic bile duct; C78.89 Secondary malignant neoplasm of other digestive organs; C20 Malignant neoplasm of rectum; I48.92 Unspecified atrial flutter; E87.1 Hypo-osmolality and hyponatremia; Z85.89 Personal history of malignant neoplasm of other organs and systems; R74.0 Nonspecific elevation of levels of transaminase and lactic acid dehydrogenase [LDH]; D64.9 Anemia, unspecified; Z92.21 Personal history of antineoplastic chemotherapy; Z95.828 Presence of other vascular implants and grafts; R00.0 Tachycardia, unspecified; K63.5 Polyp of colon
CPT/HCPCS: 36415; 36416; 74022; 74176; 80048; 80053; 82248; 82553; 83615; 83735; 84100; 84134; 84484; 84550; 85025; 85610; 85730; 86850; 86900; 86901; 88305; 93005; 93010; 94640; A4216; J0131; J1100; J1170; J1200; J1650; J2001; J2185; J2250; J2405; J2704; J3010; J3475; J7050; J7620; S0020; S0028

== ENCOUNTER 2017-06-17 10:59 | Outpatient (CLI) | payer MEDICARE ==
[2017-06-17] MEDS ORDERED: Iopamidol 370 76% 100 ML VIAL ONE (13:45)
--- NOTE | 2017-06-17 15:21 | CT ---
CT ABDOMEN AND PELVIS WITH IV CONTRAST: Date: 06-17-17 History: Perforation of small bowel, nontraumatic. Comparison: 05-31-17 FINDINGS: There has been interval resolution of the right pleural effusion with interval decrease in size of le ft pleural effusion with only very tiny left pleural effusion present on today's exam. Bibasilar atel ectasis is noted. There are scattered small subcentimeter hyperdense lesions seen in each lobe of the liver, difficult to further characterize, but may be related to metastatic lesions. There is a large hypodense lesion seen in the medial segment of the left hepatic lobe measuring 2.7 cm which demonstrates fluid attenua tion and may represent a hepatic cyst. A 4.2 cm inferior pole left renal cyst is again identified. There is a subcentimeter too small to lokesh racterize hypodense lesion in the midportion o the right kidney. There is a low density cystic appearing structures seen in the head of the pancreas measuring 2.1 cm x 1.4 cm. This was also present on the prior noncontrasted studies but less evaluated. The spleen and bilateral adrenal glands demonstrate a normal CT appearance. Left lower quadrant colostomy is present. Sigmoid colon also appears to extend to the level of this o stomy. The thickening in the region of the sigmoid colon is less apparent on this exam although there is evidence of colonic diverticulosis. Drain catheter is again seen in the pelvis entering via a right anterolateral approach with tip of th e catheter in the left hemipelvis, unchanged in position. There is a curvilinear fluid collection see n in the left hemipelvis which is difficult to measure in length but in greatest transverse dimension measures approximately 1 cm. There is a smaller linearly oriented fluid collection in the anterior a spect of the pelvis with greatest dimension of approximately 7 mm with well-defined enhancing wall. T hese small collections could be related to infectious process but no focus of gas is present. These c ollections are too small to percutaneously drain. There is no evidence of lymphadenopathy. Vascular calcifications seen in the abdominal aorta and iliac arteries. Opacified bowel has a normal CT appearance. IMPRESSION: 1. Scattered subcentimeter hypodense lesions throughout each of lobe of the liver, worrisome for meta static disease. In addition there is a larger low density lesion medial segment of the left hepatic l obe which demonstrates fluid attenuation and may represent an associated hepatic cyst. 2. Interval decrease in bilateral pleural effusions with only a tiny persistent left pleural effusion . 3. Cystic appearing mass within the pancreatic head measuring 2.1 cm in maximal dimension. This may b e related to benign or malignant etiology. This cannot be further characterized on this exam. 4. Post-surgical changes with left lower quadrant ostomy. This was also seen on the prior study. Thic kening in the region of the sigmoid colon has improved when compared to that exam but does persist. T here is colonic diverticulosis present. 5. Linear as well as curvilinear fluid collections within the central and left hemipelvis with well-d efined enhancing cameron. This could be related to infection, but these collections are too small to pe rcutaneously drain. 6. Inflammatory stranding within the left anterolateral aspect of the abdomen. Etiology for these inf lammatory changes is uncertain. Follow up evaluation is recommended. These could be post-surgical in origin or related to other inflammatory focus. Peritoneal carcinomatosis could not be entirely exclud ed and continued follow up is recommended. 7. No enlarged lymph nodes are seen by CT size criteria. 8. Remainder of the findings are as described above. POS: [facility]
== END 2017-06-17 11:00 | disposition home or self-care (01) ==
LOC: CT 10:59
PROVIDERS: ATTEND Surgery
DX: K63.1 Perforation of intestine (nontraumatic) (principal); J90 Pleural effusion, not elsewhere classified; K76.9 Liver disease, unspecified; K86.89 Other specified diseases of pancreas
CPT/HCPCS: 74177

== ENCOUNTER 2017-09-05 08:18 | Outpatient (CLI) | payer MEDICARE ==
[2017-09-05 08:57] LABS: Estimated GFR-MDRD - POC Greater than 90
--- NOTE | 2017-09-05 10:38 | CT ---
CT OF ABDOMEN AND PELVIS PERFORMED WITH INTRAVENOUS CONTRAST ENHANCEMENT: History: Malignant neoplasm of rectum. Patient currently on chemotherapy and also has a history of me lanoma. Comparison: 06-17-17 FINDINGS: Lung bases show some bibasilar linear change probably representing scar. The effusions have resolved. There are three hypodensities seen within the right lobe of the liver which are too small to characte rize but do appear smaller as compared to the previous examination. They would be worrisome for small metastatic lesions. The hepatic cyst is stable. Spleen is within normal limits of size. The hypodense area within the pancreatic head is stable in ap pearance. Right and left adrenal glands are normal in appearance. Nonobstructing renal calculi are seen. Tiny s ubcentimeter hypodensity within the right kidney and a lower pole left renal cyst is unchanged. There is no significant periaortic or mesenteric lymphadenopathy. The fat stranding within the omental fat noted on the previous examination in the left anterior abdomen is resolved. CT OF PELVIS PERFORMED WITH CONTRAST ENHANCEMENT: There is sigmoid diverticulosis noted with what appears to be a double barrel colostomy present. In a ddition, there appears to be some herniation of small bowel at the level of the ostomy. The fat stran ding around the sigmoid colon has improved. The wall still appears slightly thickened. No significant pelvic adenopathy is demonstrated. Review of osseous structures show arthritic changes of the spine. IMPRESSION: 1. Interval subtle decrease in size of the small hyperdensities within the right lobe of the liver. T his would make these more suspicious for small metastatic lesions. 2. Stable cystic appearing area within the left lobe of the liver and pancreatic head region. 3. Nonobstructing bilateral renal calculi. 4. Sigmoid diverticulosis. Some of the fat stranding around the sigmoid colon is improved as compared to the prior examination. There has also been resolution of the fat stranding within the omentum in the left abdomen. 5. Resolution of the small left sided pleural effusion. POS: [facility]
[2017-09-05] MEDS ORDERED: Iopamidol 370 76% 100 ML VIAL ONE (13:25)
== END 2017-09-05 08:19 | disposition home or self-care (01) ==
LOC: CT 08:18
PROVIDERS: ATTEND Internal Medicine Hematology & Oncology
DX: C20 Malignant neoplasm of rectum (principal); K76.89 Other specified diseases of liver; N20.0 Calculus of kidney; K57.30 Diverticulosis of large intestine without perforation or abscess without bleeding; J90 Pleural effusion, not elsewhere classified
CPT/HCPCS: 74177

== ENCOUNTER 2017-11-28 07:14 | Outpatient (CLI) | payer MEDICARE ==
[2017-11-28] MEDS ORDERED: ISOVUE-370 76%-LOCM 1 ML ONE (13:21)
== END 2017-11-28 07:15 | disposition home or self-care (01) ==
LOC: BICCT 07:14
PROVIDERS: ATTEND Internal Medicine Hematology & Oncology
DX: C20 Malignant neoplasm of rectum (principal); R93.2 Abnormal findings on diagnostic imaging of liver and biliary tract; Z98.890 Other specified postprocedural states
CPT/HCPCS: 74177

== ENCOUNTER 2018-04-18 08:17 | Outpatient (CLI) | payer MEDICARE ==
--- NOTE | 2018-04-18 11:14 | CT ---
CT ABDOMEN AND PELVIS WITH IV CONTRAST: INDICATIONS: History of rectal cancer with liver metastasis. COMPARISON: CT from 11/28/2017. CTs from 09/05/2017 and 06/17/2017. TECHNIQUE: Multiple axial tomograms obtained through the abdomen and pelvis with IV enhancement. Oral contrast was given. FINDINGS: Images through the lung bases show no focal infiltrate. An area of ill defined parenchymal opacity i s seen in the right mid lobe on the very first image. This is incompletely evaluated; however, a foc al right middle lobe infiltrate cannot be excluded. Consider further evaluation as indicated. Review of the liver again shows the circumscribed hepatic cyst adjacent to the falciform ligament, wh ich is stable. The left lobe liver lesion has enlarged since the prior study. This lesion now measures approximatel y 2 cm in AP dimension in the axial plane x 2.2 cm in width in the coronal plane. This lesion was on ly faintly visualized on the prior study. A faint lesion along the peripheral margin of the right lobe of the liver has also increased in size, now measuring approximately 1.3 cm in AP dimension on the axial plane. This lesion previously measu red 0.5 cm. A faint lesion in the inferior right lobe of the liver is ill defined but appears more prominent toda y. The margins of this lesion are difficult to determine. There is a more defined lesion in the more inferior right lobe, along the tip of the liver, which has increased in size. This lesion measures 1.9 cm in AP dimension in the axial plane today. This lesi on previously measured no more than 6 to 7 mm. The spleen and pancrease are unremarkable. The adrenal glands are normal. The kidneys are unremarka ble. Bilateral renal cystic lesions are again seen, the largest from the inferior left kidney. Small bowel loops are normal. Colostomy, left lower quadrant, is again seen, with a parastomal herni a again noted. Small bowel loops herniate through the defect in the parastomal region; however, ther e is no evidence of strangulation or bowel obstruction. The aorta is of normal caliber. No adenopathy. The osseous structures are unremarkable. IMPRESSION: 1. Enlarging liver lesions when compared to the prior study, as described above. 2. Questionable parenchymal opacity on the very first images through the lung bases in the right mid dle lobe. Recommend further evaluation for respiratory symptoms or concern. 3. Parastomal hernia appears stable. 4. Renal cysts are stable. POS: [facility]
[2018-04-18] MEDS ORDERED: Iopamidol 370 76% 100 ML VIAL ONE (12:02)
== END 2018-04-18 08:18 | disposition home or self-care (01) ==
LOC: BICCT 08:17
PROVIDERS: ATTEND Internal Medicine Hematology & Oncology
DX: C20 Malignant neoplasm of rectum (principal); R16.0 Hepatomegaly, not elsewhere classified; K43.5 Parastomal hernia without obstruction or gangrene; N28.1 Cyst of kidney, acquired
CPT/HCPCS: 74177

== ENCOUNTER 2018-04-22 11:20 | Outpatient (CLI) | payer MEDICARE ==
[2018-04-22 12:31] LABS: #Basophils 0.1 thou/uL (0.0-0.2); #Eosinphils 0.2 thou/uL (0.0-0.7); #Lymphocytes 1.9 thou/uL (1.20-3.40); #Monocytes 0.6 thou/uL (0.11-0.59); #Neutrophils 5.6 thou/uL (1.40-6.50); %Basophils 0.8 % (0.0-1.0); %Eosinophils 2.3 % (0.0-10.0); %Monocytes 7.2 % (0.0-10.0); %Neutrophils 66.6 % (42.0-75.0); Hemoglobin 15.4 g/dL (14.0-18.0); Mean Corpuscular Hemoglobin 32.6 pg (27.0-31.0); Mean Corpuscular Volume 98.9 fL (78.0-98.0); Mean Platelet Volume 6.8 fL (7.4-10.4); Platelet Count 258 thou/uL (130-400); RBC Distribution Width 14.5 % (11.5-14.5); Red Blood Cell (RBC) Count 4.73 mill/uL (4.70-6.10); White Blood Cell (WBC) Count 8.4 thou/uL (4.8-10.8)
[2018-04-22 12:55] LABS: Anion Gap 11 mmol/L (10-20); BUN (Urea Nitrogen) 14 mg/dL (8.4-25.7); Calc. Creatinine Clearance 0 mL/min (70-130); Calcium 10.9 mg/dL (7.8-10.44); Carbon Dioxide 26 mmol/L (23-31); Chloride 109 mmol/L (98-107); Estimated GFR-MDRD 87; Glucose 95 mg/dL (80-115); Potassium 4.6 mmol/L (3.5-5.1); Sodium 141 mmol/L (136-145)
--- NOTE | 2018-04-22 15:44 | EKG ---
Test Reason : Blood Pressure : / mmHG Vent. Rate : 069 BPM Atrial Rate : 069 BPM P-R Int : 178 ms QRS Dur : 110 ms QT Int : 378 ms P-R-T Axes : 057 -11 025 degrees QTc Int : 405 ms Normal sinus rhythm Normal ECG When compared with ECG of 02-JUN-2017 21:33, Sinus rhythm has replaced Atrial flutter Vent. rate has decreased BY [address] no longer depressed in Inferior leads ST no longer depressed in Lateral leads Nonspecific T wave abnormality, improved in Lateral leads Confirmed by ARASELI LIVE, SDarwin ([id number]) on 04/22/2018 3:43:28 PM Referred By: CHACE Confirmed By:DR. Tressa MARX MD
== END 2018-04-22 11:21 | disposition home or self-care (01) ==
LOC: LABBT 11:20
PROVIDERS: ATTEND Surgery
DX: Z01.818 Encounter for other preprocedural examination (principal); K43.5 Parastomal hernia without obstruction or gangrene
CPT/HCPCS: 80048; 85025; 93005; 93010

== ENCOUNTER 2018-04-22 11:30 | Inpatient (IN) | payer MEDICARE ==
[2018-04-23] MEDS ORDERED: Labetalol HCl 100 MG/20 ML VIAL ONE (10:44)
[2018-04-23] MEDS ORDERED: Sodium Chloride 0.9% 10 ML ONE (10:44)
[2018-04-23] MEDS ORDERED: Midazolam HCl 2 mg/2 ml Vial ONE (10:59)
[2018-04-23] MEDS ORDERED: Dexamethasone 4 mg/ml Vial ONE (10:59)
[2018-04-23] MEDS ORDERED: Fentanyl 100 MCG/2 ML VIAL ONE ×4 (10:59→16:29)
[2018-04-23] MEDS ORDERED: Sodium Chloride 0.9% 100 ML ONE (11:16)
[2018-04-23] MEDS ORDERED: cefOXitin 2 GM VIAL ONE (11:16)
[2018-04-23] MEDS ORDERED: Ketorolac Tromethamine 30 MG/ML VIAL ONE (11:16)
[2018-04-23] MEDS ORDERED: Bupivacaine/Epinephrine 0.25% 30 ML VIAL ONE (12:09)
[2018-04-23] MEDS ORDERED: Bupivacaine HCl 0.5%/Epinephrine 1:200,000/PF 30 ml Vial ONE (15:04)
[2018-04-23] MEDS ORDERED: Lidocaine 1% PF 5 ML VIAL ONE (15:25)
[2018-04-23] MEDS ORDERED: Ondansetron HCl/PF 4 MG/2 ML Vial ONE (15:25)
[2018-04-23] MEDS ORDERED: ePHEDrine/0.9% NaCl/PF SYRINGE 50 mg/10 ml ONE (15:25)
[2018-04-23] MEDS ORDERED: PROPOFOL 200 MG/20 ML VIAL ONE (15:25)
[2018-04-23] MEDS ORDERED: PHENYLEPHRINE-NS 100 MCG/ML 10 ML SYRINGE ONE ×2 (15:25→15:27)
[2018-04-23] MEDS ORDERED: Ondansetron HCl/PF 4 MG/2 ML Vial IVP PRN (17:54)
[2018-04-23] MEDS ORDERED: Promethazine HCl 25 MG/ML VIAL SLOW IVP PRN (17:54)
[2018-04-23] MEDS ORDERED: Promethazine HCl 25 MG/ML VIAL IM PRN (17:54)
[2018-04-23] MEDS ORDERED: Morphine 4 MG/ML VIAL SLOW IVP PRN (18:04)
[2018-04-23] MEDS ORDERED: Ketorolac Tromethamine 30 MG/ML VIAL IVP PRN (18:05)
[2018-04-23] MEDS ORDERED: Pantoprazole 40 MG VIAL IVP SCH ×2 (18:15→20:30)
[2018-04-23 22:35] VITALS: BMI 25.9
[2018-04-23] MEDS: D5 1/2 NS w/20 mEq KCL 1,000 ML IV SCH (23:10)
[2018-04-24] MEDS: Acetaminophen 1,000 MG in Premix Bag 1 BAG IVPB SCH ×4 (00:31→18:33)
[2018-04-24] MEDS: D5 1/2 NS w/20 mEq KCL 1,000 ML IV SCH ×3 (00:32→18:39)
[2018-04-24 06:05] LABS: #Monocytes 0.7 thou/uL (0.11-0.59); #Neutrophils 9.1 thou/uL (1.40-6.50); %Basophils 0.1 % (0.0-1.0); %Eosinophils 0.1 % (0.0-10.0); %Lymphocytes 9.5 % (21.0-51.0); %Monocytes 6.1 % (0.0-10.0); %Neutrophils 84.2 % (42.0-75.0); Hemoglobin 12.4 g/dL (14.0-18.0); Mean Corpuscular HGB CONC 32.4 g/dL (32.0-36.0); Mean Corpuscular Hemoglobin 32.1 pg (27.0-31.0); Mean Corpuscular Volume 98.9 fL (78.0-98.0); Mean Platelet Volume 6.8 fL (7.4-10.4); Platelet Count 210 thou/uL (130-400); RBC Distribution Width 14.2 % (11.5-14.5); Red Blood Cell (RBC) Count 3.87 mill/uL (4.70-6.10); White Blood Cell (WBC) Count 10.8 thou/uL (4.8-10.8)
[2018-04-24 06:30] LABS: Anion Gap 9 mmol/L (10-20); BUN (Urea Nitrogen) 19 mg/dL (8.4-25.7); Calc. Creatinine Clearance 81 mL/min (70-130); Calcium 9.4 mg/dL (7.8-10.44); Carbon Dioxide 22 mmol/L (23-31); Chloride 110 mmol/L (98-107); Estimated GFR-MDRD 69; Glucose 155 mg/dL (80-115); Potassium 4.3 mmol/L (3.5-5.1); Sodium 137 mmol/L (136-145)
[2018-04-24] MEDS: Lactinex Tablet PO SCH (08:19)
[2018-04-24] MEDS: Enoxaparin Sodium 40 MG/0.4 ML SYRINGE SC SCH (08:19)
[2018-04-24] MEDS: Docusate 100 MG CAP PO SCH (08:20)
[2018-04-24] MEDS: Pantoprazole 40 MG VIAL IVP SCH (08:20)
[2018-04-24] MEDS ORDERED: Prevnar 13-Val Conj/PF 0.5 ML SYRINGE IM ONE (09:00)
[2018-04-24] MEDS ORDERED: HYDROcodone/Acetaminophen 5/325 mg Tablet PO PRN (10:55)
--- NOTE | 2018-04-24 10:57 | PDOC.GSPN ---
Surgery Progress Note: Subj - Subjective Narrative: Patient is feeling well. He is having some moderate tenderness in the lower abdomen this morning but has otherwise been comfortable. He is passing gas out his colostomy and tolerated clears without nausea. Abdomen is soft and nondistended. Colostomy is healthy in appearance. Mucous fistula dressing is saturated and will be changed. Assessment/plan: Status post colostomy revision and repair of parastomal hernia. Patient has already passed flatus so I will advance his diet to fulls. Oral pain medications ordered. Surgery Progress Note: Obj - Vital signs Vital signs: Vital Signs - Most Recent Temp Pulse Resp BP Pulse Ox 97.6 F 82 22 H 113/65 94 L 04/24/18 04:28 04/24/18 04:28 04/24/18 04:28 04/24/18 04:28 04/24/18 04:28 Surgery Progress Note: Results - Labs Result Diagrams: 04/24/18 05:20 04/24/18 05:20 Lab results: Laboratory Results - last 24 hr 04/24/18 04/24/18 05:20 05:20 WBC 10.8 RBC 3.87 L Hgb 12.4 L Hct 38.3 L MCV 98.9 H MCH 32.1 H MCHC 32.4 RDW 14.2 Plt Count 210 MPV 6.8 L Neutrophils % 84.2 H Lymphocytes % 9.5 L Monocytes % 6.1 Eosinophils % 0.1 Basophils % 0.1 Neutrophils # 9.1 H Lymphocytes # 1.0 L Monocytes # 0.7 H Eosinophils # 0.0 Basophils # 0.0 Sodium 137 Potassium 4.3 Chloride 110 H Carbon Dioxide 22 L Anion Gap 9 L BUN 19 Creatinine 1.07 Estimated GFR (MDRD) 69 Glucose 155 H Calcium 9.4
--- NOTE | 2018-04-24 11:47 | PDOC.OP ---
Operative Note - Operative Note Operative Note: PROCEDURE: Laparoscopic revision of colostomy and open repair of parastomal hernia with biologic mesh. DATE OF PROCEDURE: 04/23/2018 SURGEON: Reyna Brunson M.D. PREOPERATIVE DIAGNOSES: Prolapsing loop colostomy with parastomal hernia. POSTOPERATIVE DIAGNOSIS: Prolapsing loop colostomy with parastomal hernia HISTORY: Patient is a 68-year-old man with metastatic obstructing rectal cancer who is status post loop colostomy for perforation. He has developed significant prolapse of his stoma as well as a large peristomal hernia, both of which are quite symptomatic. He has decided to proceed with operative repair. PROCEDURE IN DETAIL: After informed consent was obtained and appropriate preoperative antibiotics administered the patient was taken to the operating room he was placed in the supine position and general endotracheal anesthesia was administered. The stoma was closed with a running 0 silk suture. The bladder was placed to decompress his bladder and he was prepped and draped in the standard sterile fashion. The stoma site was covered with a Tegaderm dressing to minimize the risk of contamination. Local anesthesia was infused to the skin and subcutaneous tissues at the right subcostal area. A skin incision was made and a Veress needle introduced without difficulty. Carbon dioxide gas was insufflated to an intra-abdominal pressure 15 which the patient tolerated well. Opening pressure was 3. A Pomaria port was advanced under direct vision as the abdominal cavity which was carefully examined. There were no adhesions in the region of the port and no evidence of Veress needle or trocar injury. There were significant omental and small bowel adhesions to the periumbilical incision and in the left and lower abdomen. A clear space in the right lateral abdomen was identified. Local anesthesia was infused to skin incision was made and a trocar was placed under direct vision. An additional dissecting port was placed in the left upper quadrant at the anticipated site of the wrist site a colostomy. The omental adhesions were taken down from the anterior abdominal wall using a combination of sharp dissection and carefully fissure. Due to the small bowel loops also adherent to the omentum LigaSure was used sparingly and only when it could be clearly determined only omentum was involved. The patient was noted to have some fascial weakening in the periumbilical region but no large hernia. The adhesions in the lower abdomen were taken down to allow placement of an additional dissecting port in the right lower quadrant. Multiple adhesions were noted in the parastomal area. Some nondilated normal- appearing small bowel loops were identified in the parastomal hernia and carefully drawn down out of the hernia dividing the filmy adhesions that were holding them there under direct vision. Additional omental adhesions were taken down and the omentum and small bowel drawn out of the parastomal hernia revealing the loop colostomy. There were additional small bowel loops adherent to the mesentery of the colon and these adhesions were taken down under direct vision using sharp dissection through the avascular plane. Once the mesentery of the bowel was completely cleared and it was confirmed that only colon was present in the parastomal hernia, the proximal limb of the colostomy loop was drawn inferiorly and a window created through the mesentery near the colostomy. A laparoscopic stapler was advanced through the right lower quadrant incision and placed across the colon which was stapled and divided. The mesentery was then divided using LigaSure to allow enough ability to reach to the left upper quadrant. The planned site of the ostomy was too superior for the bowel to reach without tension so a slightly more inferior site was identified. Local anesthesia was infused in a circular skin incision was made. Dissection was carried down to the rectus sheath which was incised in a cruciate manner. The underlying muscles were split and the posterior sheath was incised in a cruciate manner as well. The tract was dilated and the descending colon was easily drawn out through the colostomy site. This was confirmed to be in good orientation without twisting of the mesentery. The bowel was secured circumferentially to the anterior rectus sheath with 3-0 silk sutures. A laparoscopic needle diesel pile driver operator was used to secure the bowel to the posterior rectus sheath as well. Attention was then turned to repair of the parastomal hernia. A transversely oriented skin incision was made around the colostomy and dissection carried down to the parastomal hernia. The colon was dissected free circumferentially and the hernia sac resected. The anterior rectus sheath was identified and dissected free of the underlying rectus muscles. The posterior sheath was likewise dissected free of the overlying rectus muscles. The posterior sheath was reapproximated superiorly with a running 0 Ethibond suture and a pliable Strattice biologic mesh obtained. This was placed over the posterior rectus sheath repair and secured circumferentially to the posterior rectus sheath to reinforce the repair. The distal colon was then secured to the posterior rectus sheath with 3-0 silk sutures circumferentially. The rectus muscles were reapproximated superiorly with interrupted silk sutures and the anterior rectus sheath reapproximated superiorly with a running 0 Ethibond suture. The distal colon was secured to the anterior rectus sheath circumferentially with 3-0 silk sutures as well. The wound was irrigated and hemostasis confirmed. The skin was reapproximated laterally with a running 4-0 Monocryl suture to decrease the incision to the appropriate size for a mucous fistula, with a Telfa wick placed in the subcutaneous space to minimize seroma formation. The hernia repair was examined laparoscopically and was confirmed to be good. The right lower quadrant trocar was removed and the fascial defect repaired with a 0 Vicryl suture on a GraNee needle. The left upper quadrant and right lateral ports removed and hemostasis verified. Carbon dioxide gas was allowed to desufflate through the right upper quadrant trocar which was then removed. The skin incisions were all closed with 4-0 Monocryl suture and Dermabond placed. Attention was then turned to maturation of the mucous fistula and the descending colostomy. The staple line of the descending colostomy was excised and a bois forte colostomy created by connecting full-thickness bites of the edge of the colon to Lembert sutures a few centimeters back and securing this to the dermis at 4 quadrants. Intervening sutures were then placed securing the edge of the colon to the dermis and a colostomy appliance was placed. The redundant bowel at the mucous fistula site was resected and sent to pathology. The mucous fistula was then matured in an identical manner to the descending colostomy and a Telfa and Tegaderm dressing placed. The patient was extubated and taken to the recovery room in good condition. Estimated blood loss was minimal. There were no complications. Specimen is colostomy.
[2018-04-25] MEDS: Acetaminophen 1,000 MG in Premix Bag 1 BAG IVPB SCH (01:00)
[2018-04-25] MEDS: D5 1/2 NS w/20 mEq KCL 1,000 ML IV SCH ×2 (01:04→09:25)
[2018-04-25 08:33] VITALS: BP 167/89; TEMP 98.2
[2018-04-25] MEDS: Docusate 100 MG CAP PO SCH (09:18)
[2018-04-25] MEDS: Lactinex Tablet PO SCH (09:18)
[2018-04-25] MEDS: HYDROcodone/Acetaminophen 5/325 mg Tablet PO PRN ×2 (09:18→13:44)
[2018-04-25] MEDS: Enoxaparin Sodium 40 MG/0.4 ML SYRINGE SC SCH (09:18)
[2018-04-25] MEDS: Pantoprazole 40 MG VIAL IVP SCH (09:18)
[2018-04-25] MEDS ORDERED: Ibuprofen 200 MG TAB PO PRN (22:00)
== END 2018-04-25 14:00 | disposition home or self-care (01) | DRG 330 ==
LOC: SURG A 04-23 10:09 → EDSTATUS 04-23 11:30 → SURG A 04-23 19:55 → SJJU 04-24 16:17
PROVIDERS: ADMIT Surgery; ATTEND Surgery
PROC: 0D1M4Z4 Bypass Descending Colon to Cutaneous, Percutaneous Endoscopic Approach (ICD-10-PCS; principal; 2018-04-23)
PROC: 0WUF0JZ Supplement Abdominal Wall with Synthetic Substitute, Open Approach (ICD-10-PCS; 2018-04-23)
DX: K43.5 Parastomal hernia without obstruction or gangrene (principal); C18.9 Malignant neoplasm of colon, unspecified; K94.09 Other complications of colostomy; Z85.820 Personal history of malignant melanoma of skin
CPT/HCPCS: 36415; 80048; 85025; 88304; 90471; 90670; A4216; C9113; G0009; J0131; J0670; J0694; J1100; J1650; J1885; J2001; J2250; J2270; J2405; J2704; J3010; J7050; Q4130

== ENCOUNTER 2018-08-14 09:58 | Outpatient (CLI) | payer MEDICARE ==
[2018-08-14] MEDS ORDERED: ISOVUE-370 76%-LOCM 1 ML ONE (11:23)
--- NOTE | 2018-08-14 12:49 | CT ---
CT OF THE CHEST AND ABDOMEN AND PELVIS WITH IV CONTRAST: INDICATION: History of metastatic colon cancer. CONTRAST: 70 cc of Isovue 370. COMPARISON: Prior CT of the abdomen and pelvis dated 04/18/2018, CT of the abdomen and pelvis dated 04/15/2017, and a PET CT dated 04/30/2017. FINDINGS: CHEST: There is a new 4.6 mm pulmonary nodule within the right upper lobe. There is a recurrent spiculated nodular opacity within the right middle lobe with surrounding scar measuring 1.3 cm that was found to be hypermetabolic on the prior PET scan. There is mild scarring involving both lung bases. No chelsea tional suspicious pulmonary nodule is evident. No pathologically enlarged lymph nodes are evident. There are scattered thoracic aorta calcifications. There is a left chest wall port in place. ABDOMEN: The metastatic lesions within the liver have decreased in size and conspicuity since the most recent comparison CT examination of the abdomen and pelvis. The lesion within the medial left hepatic lobe previously measuring 2 cm now measures 1.5 cm. The lesion within the anterior left hepatic lobe prev iously measuring 1.4 cm now measures 1.4 cm. The small cyst within the right hepatic lobe is stable. The lesion within segment 6 of the right hepatic lobe previously measured 1.8 cm and now measures 1 .3 cm. The lesion within the tip of the right hepatic lobe within 6 previously measuring 1.9 cm now measures 1.6 cm. The hypodense cystic abnormality on the pancreatic head is stable since 2017 measuring 1.8 cm. Bilat eral nephrolithiasis and left renal cysts are stable. Adrenal glands and spleen are unremarkable. There has been revision of the left lower quadrant colostomy. There is a new in colostomy within th e left upper quadrant of the abdomen. The distal aspect of the colon is still present within the old ostomy site. The previously seen parastomal hernia has been reduced. There are scattered diverticu la. No pathologically enlarged retroperitoneal lymph nodes are evident. PELVIS: The bladder, rectum, and perirectal soft tissues appear within normal limits. No definite pathologic ally enlarged lymph nodes are grossly evident. OSSEOUS STRUCTURES: No suspicious osteolytic or osteoblastic lesion is evident. IMPRESSION: 1. Findings showing mixed response to therapy. There is a new pulmonary nodule within the right upper lobe not seen on the prior PET CT dated 04/30/2017. There is a recurrent spiculated pulmonary nodule within the right middle lobe and a previous site of a prior suspected right middle pulmonary m etastatic lesion seen on the PET CT dated 04/30/2017. 2. Findings consistent with response to therapy involving hepatic metastatic disease with decrease i n size in the multiple hepatic metastatic lesions. There is a stable right hepatic lobe cyst and thao creatic head cyst. 3. Bilateral nephrolithiasis and left renal cysts are stable. 4. Revision of the patient's left lower quadrant loop colostomy with reduction of the parastomal her benedict. POS: [facility]
== END 2018-08-14 09:59 | disposition home or self-care (01) ==
LOC: BICCT 09:58
PROVIDERS: ATTEND Internal Medicine Hematology & Oncology
DX: C18.9 Malignant neoplasm of colon, unspecified (principal); R91.1 Solitary pulmonary nodule; N20.0 Calculus of kidney; N28.1 Cyst of kidney, acquired; K83.8 Other specified diseases of biliary tract; C22.8 Malignant neoplasm of liver, primary, unspecified as to type; K86.2 Cyst of pancreas; K43.5 Parastomal hernia without obstruction or gangrene; Z93.3 Colostomy status
CPT/HCPCS: 71260; 74177

== ENCOUNTER 2018-11-21 09:31 | Outpatient (CLI) | payer MEDICARE ==
[2018-11-21] MEDS ORDERED: ISOVUE-370 76%-LOCM 1 ML ONE (11:22)
--- NOTE | 2018-11-21 12:08 | CT ---
CT OF THE CHEST AND ABDOMEN AND PELVIS WITH IV CONTRAST: CONTRAST: 70 cc of Isovue 370. COMPARISON: CT of the chest, abdomen, and pelvis dated 08/14/2018 from [facility]. FINDINGS: CHEST: The spiculated pulmonary nodule within the right middle lobe has increased in size now measuring 3 cm on image 38 of series 2 where previously the nodule measured 1.3 cm. There is a 5.5 mm pulmonary nodule within the left upper lobe that has increased in size from 3 mm fr om the prior exam. This is seen on image 33 of series 2. There is a right lung apical nodule measuring 6 mm where previously it measured 4.6 mm on image 14 of series 2. There is subsegmental volume loss and scarring within the lower lobes that is stable. No enlarged lymph nodes are seen within the mediastinum, hilar, or axillary regions. There is a left chest wall port in place. ABDOMEN: There has been interval enlargement of the hepatic metastatic lesions. The index node within the med ial left hepatic lobe previously measuring 1.5 cm now measures 1.9 cm. The largest lesion within the right hepatic lobe in segment 6 on image 77 series 2 now measures 2.1 cm, previously measuring 1.6 c m. The septated cystic lesion involving the pancreatic head is relatively stable measuring 1.9 cm. The bilateral renal cysts and bilateral nephrolithiasis is stable. No enlarged lymph nodes are evident within the upper abdomen. The spleen is within normal limits. PELVIS: There are stable left upper quadrant and left lower quadrant ostomies. There is scattered diverticul a involving the colon. There is normal appendix seen over the right mid abdomen. The prostate is en larged measuring 5 cm. There is scattered degenerative and osteoarthritic change. IMPRESSION: Worsening metastatic disease. The pulmonary metastatic disease and hepatic metastatic disease has in creased in size from the most recent comparison dated 08/14/2018. POS: [facility]
== END 2018-11-21 09:32 | disposition home or self-care (01) ==
LOC: BICCT 09:31
PROVIDERS: ATTEND Internal Medicine Hematology & Oncology
DX: C20 Malignant neoplasm of rectum (principal); C78.00 Secondary malignant neoplasm of unspecified lung; D50.0 Iron deficiency anemia secondary to blood loss (chronic); C78.7 Secondary malignant neoplasm of liver and intrahepatic bile duct
CPT/HCPCS: 71260; 74177; Q9966

== ENCOUNTER 2018-12-02 09:57 | Outpatient (CLI) | payer MEDICARE ==
--- NOTE | 2018-12-02 12:18 | CT ---
CT OF THE ABDOMEN AND PELVIS WITH IV CONTRAST INDICATION: Abnormality with the patient's colostomy; history of rectal cancer with metastatic diseas e to the lungs and liver. COMPARISON: CT of the chest, abdomen and pelvis dated 11/21/2018 FINDINGS: ABDOMEN: Lung bases: Subsegmental atelectasis Liver: Stable hepatic metastatic disease Gallbladder: Normal appearing. Pancreas: Stable septated cystic abnormality of the pancreatic head Adrenal glands: Normal. Spleen: Normal. Kidneys: Stable bilateral nephrolithiasis and bilateral renal cysts Retroperitoneum of the upper abdomen: There are vascular calcifications involving abdominal aorta. No lymphadenopathy is demonstrated. Pelvis: Small and large bowel: There is been interval development of prominent wall thickening involving the stoma of the left upper quadrant end colostomy. There are numerous diverticula associated with the colostomy on the prior examination. Findings are suspicious for diverticulitis. No definite drainable fluid collection is grossly evident. There is no evidence of bowel obstruction. The colostomy of the left lower quadrant appears within normal limits. There are numerous scattered diverticula involv ing this segment of the colon which involves the sigmoid colon and rectum. Bladder: Normal. Rectal and perirectal soft tissues:Normal. Reproductive structures: There is stable prostate enlargement Free fluid in pelvis: No free fluid is evident. Lymphadenopathy pelvis: No lymphadenopathy is evident. Osseous structures: There is diffuse osteopenia. There is scattered degenerative and osteoarthritic c hange present. IMPRESSION: 1. Findings suspicious for interval development of colonic diverticulitis of the left upper quadrant in colostomy. 2. Stable hepatic metastatic disease. 3. Other stable chronic findings as above.
[2018-12-02] MEDS ORDERED: Iopamidol 370 76% 100 ML VIAL ONE (13:02)
[2018-12-02] MEDS ORDERED: Iopamidol 370 76% 50 ML VIAL FS ONE (13:02)
== END 2018-12-02 09:58 | disposition home or self-care (01) ==
LOC: CT 09:57
PROVIDERS: ATTEND Surgery
DX: R10.9 Unspecified abdominal pain (principal); C78.7 Secondary malignant neoplasm of liver and intrahepatic bile duct; Z93.3 Colostomy status
CPT/HCPCS: 74177; Q9967

== ENCOUNTER 2019-03-11 09:24 | Outpatient (CLI) | payer MEDICARE ==
--- NOTE | 2019-03-11 13:01 | CT ---
CT CHEST, ABDOMEN AND PELVIS WITH IV CONTRAST 03/11/19 PROVIDED CLINICAL HISTORY: Rectal cancer. FINDINGS: Comparison is made with the study dated 11/21/18. The heart, pericardium, and great vessels demonstrate a stable CT appearance. There is no evidence for thoracic lymph node enlargement. There has been interval increase in size in the right middle lobe pulmonary nodule, now measuring abo ut 3 cm in greatest transverse dimension x about 1.3 cm in craniocaudal dimension. Interval developm ent of a right perihilar pulmonary nodule measuring about 7 mm within the right upper lobe. Interval development of a 6 mm pulmonary nodule within the lingula medially. No pleural fluid or pneumothorax apparent. The airway appears patent and of normal caliber. There has been interval enlargement of all of the previously described hepatic lesions. For example, the largest cystic and solid lesion involving the anterior segment of the right hepatic lobe measures 3.6 cm on the current study as compared to 3.1 cm on the prior. The spleen, pancreas, kidneys, and adrenal glands demonstrate a stable CT appearance. There is no bowel dilatation, inflammatory fat stranding, free fluid or lymph node enlargement appare nt. Postoperative changes of colostomy are redemonstrated. Scattered vascular calcifications are seen. The osseous structures demonstrate no concerning lytic or blastic lesions. IMPRESSION: Findings compatible with worsening of pulmonary and hepatic metastatic disease as described. POS: [facility]
== END 2019-03-11 09:25 | disposition home or self-care (01) ==
LOC: BICCT 09:24
PROVIDERS: ATTEND Internal Medicine Hematology & Oncology
DX: C20 Malignant neoplasm of rectum (principal)
CPT/HCPCS: 71260; 74177

== ENCOUNTER 2019-03-26 09:16 | Day surgery (SDC) | payer MEDICARE ==
[2019-03-25 15:55] VITALS: BMI 26.0
[2019-03-26 09:39] LABS: Prothrombin Time 13.1 SEC (12.0-14.7)
[2019-03-26 09:40] LABS: PTT 32.3 SEC (22.9-36.1)
[2019-03-26 09:41] LABS: #Basophils 0.1 thou/uL (0.0-0.2); #Eosinphils 0.2 thou/uL (0.0-0.7); #Lymphocytes 1.9 thou/uL (1.20-3.40); #Monocytes 0.6 thou/uL (0.11-0.59); #Neutrophils 4.4 thou/uL (1.40-6.50); %Basophils 1.2 % (0.0-1.0); %Eosinophils 2.3 % (0.0-10.0); %Monocytes 8.8 % (0.0-10.0); %Neutrophils 61.7 % (42.0-75.0); Hemoglobin 15.2 g/dL (14.0-18.0); Mean Corpuscular HGB CONC 33.7 g/dL (32.0-36.0); Mean Corpuscular Hemoglobin 31.9 pg (27.0-31.0); Mean Corpuscular Volume 94.5 fL (78.0-98.0); Mean Platelet Volume 6.7 fL (7.4-10.4); Platelet Count 204 thou/uL (130-400); RBC Distribution Width 15.2 % (11.5-14.5); Red Blood Cell (RBC) Count 4.78 mill/uL (4.70-6.10); White Blood Cell (WBC) Count 7.2 thou/uL (4.8-10.8)
[2019-03-26 13:40] VITALS: BP 159/95; TEMP 98.2
--- NOTE | 2019-03-26 15:00 | CT ---
Exam: CT-guided biopsy of a right hepatic lobe mass COMPARISON: 03/11/2019 FINDINGS: Two separate CTs of the right hepatic lobe were performed. The first set of cores obtained and a lesi on at the tip of the right hepatic lobe demonstrated mostly necrotic tissue. The second set of cores obtained and a lesion involving the anterior segment right hepatic lobe demonstrated lesional t issue and necrosis. TECHNIQUE: Consent obtained performing CT-guided percutaneous biopsy of the liver. Liver was identifi ed and the lesion in the tip of the right hepatic lobe was deemed appropriate. Skin was prepped and draped sterile fashion. 1% lidocaine, buffered with sodium bicarbonate used for local anesthesia. Und er CT guidance, 17-gauge metallic trocar was advanced such that the tip was within the lesion. Two 18-gauge core biopsy samples were obtained. There is only hepatocytes, blood products and necrotic ti ssue. Therefore, the needle was removed and a separate lesion in the anterior segment of the right hepatic lobe was deemed appropriate. Skin was prepped and draped sterile fashion. 1% lidocaine, buffe red with sodium carbonate was used for local anesthesia. Under CT guidance, 17-gauge metallic trocar was advanced such that the tip was within the lesion. Two 18-gauge core biopsy samples were ob tained. Both samples demonstrates lesional tissue. Metallic trocar was removed. Postprocedure scan does not demonstrate a significant perihepatic hematoma. Patient tolerated the procedure well. No immediate or postprocedure complications IMPRESSION: Successful CT-guided biopsy of a suspicious lesion in the liver. Final pathologic diagnosis pending. Transcribed Date/Time: 03/26/2019 3:34 PM
== END 2019-03-26 15:00 | disposition home or self-care (01) ==
LOC: CT 09:16
PROVIDERS: ATTEND Internal Medicine Hematology & Oncology
PROC: 0FB13ZX Excision of Right Lobe Liver, Percutaneous Approach, Diagnostic (ICD-10-PCS; principal; 2019-03-26)
DX: C78.7 Secondary malignant neoplasm of liver and intrahepatic bile duct (principal); K76.0 Fatty (change of) liver, not elsewhere classified; C20 Malignant neoplasm of rectum; C78.00 Secondary malignant neoplasm of unspecified lung; G62.9 Polyneuropathy, unspecified; Z79.899 Other long term (current) drug therapy; Z93.3 Colostomy status
CPT/HCPCS: 36415; 47000; 77002; 85025; 85610; 85730; 88307; 88333; 88334; 88341; 88342

== ENCOUNTER 2019-06-16 07:32 | Outpatient (CLI) | payer MEDICARE ==
--- NOTE | 2019-06-16 08:36 | CT ---
CT CHEST AND ABDOMEN AND PELVIS WITH CONTRAST: HISTORY: Rectal cancer. COMPARISON: CT exam from February 2019. FINDINGS: The nodule within the right upper lobe, axial image 15, is similar. The nodule along the left upper l obe abutting the mediastinal pleura is slightly increased in size, now measuring 9 mm, previously 6 mm. The perifissural nodule, right upper lobe, axial image 35, is slightly increased in size, now jewel suring up to 9 mm, previously 7 mm. The spiculated nodule, right middle lobe, using the same axis of measurement, axial image 40, has not significantly grown. No new suspicious pulmonary nodule. No pneumothorax. No effusion. Mild scarring in the lung bases. There are hypodensities of both right and left lobes of the thyroid. Port catheter tip sits at the mi d SVC. No pericardial effusion. Index hepatic mass involving segments 3 and 4B, using the same axis of measurement, measures 5 cm, pr eviously 3.6 cm. Hepatic segment 6 mass previously measured 2 cm, now 2.6 cm. Hepatic segment 6 mass, near the tip of the right lobe of the liver, measures 4 cm, previously 2.6 cm. The aortoiliac contour is nonaneurysmal. The pancreas and spleen are unremarkable. No new retroperito nacho or periaortic adenopathy. No suspicious osteolytic or osteoblastic lesions. Area of sclerosis, right lateral sixth rib, is lucas lar, may reflect a bone island. IMPRESSION: Progressive hepatic and pulmonary metastatic disease. Transcribed Date/Time: 06/16/2019 8:46 AM
[2019-06-16] MEDS ORDERED: Iopamidol-370 76% 500 ML 1 ML ONE (13:39)
== END 2019-06-16 07:33 | disposition home or self-care (01) ==
LOC: BICCT 07:32
PROVIDERS: ATTEND Internal Medicine Hematology & Oncology
DX: C18.9 Malignant neoplasm of colon, unspecified (principal); C20 Malignant neoplasm of rectum; C78.00 Secondary malignant neoplasm of unspecified lung; C78.7 Secondary malignant neoplasm of liver and intrahepatic bile duct
CPT/HCPCS: 71260; 74177; Q9967